=== PATIENT | male | born 1950 | race Caucasian/White ===

== ENCOUNTER 2017-02-28 01:01 | Emergency (ER) | payer MEDICARE, MEDICAID ==
[2017-02-28] MEDS: IPRATROPIUM 0.5MG/ALBUTEROL 2.5MG INH SOL UD 3ML (DUONEB)(J7620) NEB ×3 (01:35→01:36)
[2017-02-28 01:55] LABS: BASO # 0.1 10^3/uL (0.0-0.2); BASO % 0.5 % (0.0-1.0); EOS % 0.1 % (0.0-3.0); HEMATOCRIT 52.7 % (42.0-52.0); HEMOGLOBIN 18.1 g/dl (14.0-18.0); IMMATURE GRANULOCYTE # 0.2 10^3/uL (0-0); IMMATURE GRANULOCYTE % 0.7 % (0-0); LYMPH # 0.8 10^3/uL (1.5-4.5); LYMPH % 3.6 % (24.0-44.0); MEAN CORPUSCULAR HGB CONC 34.3 g/dl (32.0-36.5); MEAN CORPUSCULAR VOLUME 84.3 fl (80.0-96.0); MONO # 0.8 10^3/uL (0.0-0.8); MONO % 3.6 % (0.0-5.0); NEUTROPHILS # 19.2 10^3/uL (1.8-7.7); NEUTROPHILS % 91.5 % (36.0-66.0); PLATELET COUNT, AUTOMATED 263 10^3/uL (150-450); RED BLOOD COUNT 6.25 10^6/uL (4.30-6.10); RED CELL DISTRIBUTION WIDTH 12.5 % (11.5-14.5); WHITE BLOOD COUNT 20.9 10^3/uL (4.0-10.0)
[2017-02-28] MEDS: FUROSEMIDE 40 MG/4 ML VIAL (J1940) IV (01:55)
[2017-02-28] MEDS: ASPIRIN 81 MG CHEW TABLET PO (01:56)
[2017-02-28] MEDS: NITROGLYCERIN/D5W 100MCG/ML 250 ML IV (01:56)
[2017-02-28 01:57] LABS: ABG BASE EXCESS -3.6 (-2.0-2.0); ABG HCO3 21.2 MEQ/L (22.0-26.0); ABG O2 SATURATION 96.6 % (95.0-99.0); ABG PARTIAL PRESSURE CO2 38.3 mmHg (35.0-45.0); ABG PARTIAL PRESSURE O2 82.8 mmHg (75.0-100.0); ABG STANDARD HCO3 21.5 MEQ/L (22.0-26.0); ABG TOTAL CO2 22.4 MEQ/L (23.0-31.0); ABG pH (ARTERIAL) 7.362 UNITS (7.350-7.450)
[2017-02-28 02:23] LABS: ANION GAP 10 MEQ/L (8-16); BLOOD UREA NITROGEN 35 MG/DL (7-18); CALCIUM LEVEL 8.5 MG/DL (8.8-10.2); CARBON DIOXIDE LEVEL 24 MEQ/L (21-32); CHLORIDE LEVEL 101 MEQ/L (98-107); CPK CREATINE PHOSPHOKINASE 197 U/L (39-308); CREATININE FOR GFR 1.41 MG/DL (0.70-1.30); GLOMERULAR FILTRATION RATE 53.5 (>49); POTASSIUM SERUM 4.1 MEQ/L (3.5-5.1); SODIUM LEVEL 135 MEQ/L (136-145); TROPONIN I 1.11 NG/ML (< 0.10)
[2017-02-28 02:24] LABS: CK-MB VALUE MASS 20.7 NG/ML (0.0-3.6); NT-PRO BNP 3906 PG/ML (<125)
[2017-02-28 02:29] LABS: GLUCOSE, FASTING 448 MG/DL (80-110)
[2017-02-28] MEDS ORDERED: ISOVUE-370 76% 100ML VIAL (Q9967) As Ordered (02:36)
[2017-02-28 03:58] LABS: VENOUS BASE EXCESS -4.6 (-2.0-2.0); VENOUS HCO3 22.6 MEQ/L (23.0-27.0); VENOUS O2 SATURATION 82.3 % (60.0-80.0); VENOUS PARTIAL PRESSURE CO2 49.1 mmHg (38.0-50.0); VENOUS STANDARD HCO3 20.3 MEQ/L; VENOUS TOTAL CO2 24.1 MEQ/L (24.0-28.0)
[2017-02-28 04:54] LABS: CK-MB VALUE MASS 78.3 NG/ML (0.0-3.6); CPK CREATINE PHOSPHOKINASE 565 U/L (39-308); MB/CK RELATIVE INDEX 13.85 (< OR =4)
[2017-02-28] MEDS ORDERED: HEPARIN SOD (PORCINE) 5000 UNITS/ML VIAL IV ×2 (06:00)
[2017-02-28 06:24] LABS: HEMOGLOBIN 16.9 g/dl (14.0-18.0); MEAN CORPUSCULAR HGB CONC 34.5 g/dl (32.0-36.5); PLATELET COUNT, AUTOMATED 236 10^3/uL (150-450); RED BLOOD COUNT 5.83 10^6/uL (4.30-6.10); RED CELL DISTRIBUTION WIDTH 12.5 % (11.5-14.5); WHITE BLOOD COUNT 22.6 10^3/uL (4.0-10.0)
[2017-02-28] MEDS: HEPARIN SOD (PORCINE) 5000 UNITS/ML VIAL IV (06:26)
[2017-02-28] MEDS: HEPARIN DRIP 25,000 UNITS in APPROPRIATE DILUENT 1 EA IV (06:27)
[2017-02-28 06:35] LABS: PARTIAL THROMBOPLASTIN TIME 27.3 SECONDS (26.8-37.9)
== END 2017-02-28 08:08 | disposition short-term general hospital (02) ==
LOC: M ED 01:01
DX: J81.0 Acute pulmonary edema (principal); J96.91 Respiratory failure, unspecified with hypoxia; I21.4 Non-ST elevation (NSTEMI) myocardial infarction; Z79.899 Other long term (current) drug therapy; Z85.46 Personal history of malignant neoplasm of prostate
CPT/HCPCS: Q9967

== ENCOUNTER 2017-04-14 13:30 | Inpatient (IN) | payer MEDICARE, MEDICAID ==
[2017-04-14 16:32] LABS: HEMATOCRIT 37.4 % (42.0-52.0); HEMOGLOBIN 12.5 g/dl (14.0-18.0); MEAN CORPUSCULAR HEMOGLOBIN 28.2 pg (27.0-33.0); MEAN CORPUSCULAR HGB CONC 33.4 g/dl (32.0-36.5); MEAN CORPUSCULAR VOLUME 84.2 fl (80.0-96.0); PLATELET COUNT, AUTOMATED 314 10^3/uL (150-450); RED BLOOD COUNT 4.44 10^6/uL (4.30-6.10); WHITE BLOOD COUNT 10.2 10^3/uL (4.0-10.0)
[2017-04-14 16:50] LABS: ANION GAP 6 MEQ/L (8-16); BLOOD UREA NITROGEN 25 MG/DL (7-18); CALCIUM LEVEL 8.6 MG/DL (8.8-10.2); CARBON DIOXIDE LEVEL 28 MEQ/L (21-32); CHLORIDE LEVEL 104 MEQ/L (98-107); CREATININE FOR GFR 1.16 MG/DL (0.70-1.30); GLOMERULAR FILTRATION RATE > 60.0 (>49); GLUCOSE, FASTING 105 MG/DL (70-100); POTASSIUM SERUM 4.8 MEQ/L (3.5-5.1); PROTHROMBIN TIME 14.4 SECONDS (12.4-14.5); SODIUM LEVEL 138 MEQ/L (136-145)
[2017-04-14] MEDS ORDERED: NITROGLYCERIN 0.4 MG SUBL TABLET SL (18:15)
[2017-04-14 19:16] LABS: HEMATOCRIT 35.5 % (42.0-52.0); HEMOGLOBIN 11.9 g/dl (14.0-18.0)
[2017-04-14] MEDS ORDERED: ISOVUE-370 76% 100ML VIAL (Q9967) As Ordered (19:37)
[2017-04-14] MEDS: GASTROGRAFIN SOLUTION 30ML PO ×2 (19:45→20:15)
[2017-04-14] MEDS ORDERED: GLUCAGON FOR INJ 1 MG VIAL (J1610) SC (20:15)
[2017-04-14] MEDS ORDERED: DEXTROSE 50% 50 ML SYRINGE IV (20:15)
[2017-04-14] MEDS ORDERED: GLUCOSE 4 GM CHEW TABLET PO (20:15)
[2017-04-14] MEDS: HumaLOG INSULIN (NovoLOG) PER UNIT SC (21:00)
[2017-04-14 22:01] LABS: BEDSIDE GLUCOSE 131 MG/DL (80-115)
[2017-04-14] MEDS: ATORVASTATIN 20 MG TAB PO (22:45)
[2017-04-15 00:37] LABS: HEMATOCRIT 30.2 % (42.0-52.0); HEMOGLOBIN 10.3 g/dl (14.0-18.0)
[2017-04-15 07:34] LABS: HEMATOCRIT 34.8 % (42.0-52.0); HEMOGLOBIN 11.5 g/dl (14.0-18.0); MEAN CORPUSCULAR HEMOGLOBIN 28.1 pg (27.0-33.0); MEAN CORPUSCULAR VOLUME 85.1 fl (80.0-96.0); PLATELET COUNT, AUTOMATED 278 10^3/uL (150-450); RED BLOOD COUNT 4.09 10^6/uL (4.30-6.10); RED CELL DISTRIBUTION WIDTH 13.2 % (11.5-14.5); WHITE BLOOD COUNT 9.3 10^3/uL (4.0-10.0)
[2017-04-15 07:44] LABS: BEDSIDE GLUCOSE 125 MG/DL (80-115)
[2017-04-15 07:56] LABS: ANION GAP 7 MEQ/L (8-16); BLOOD UREA NITROGEN 24 MG/DL (7-18); CALCIUM LEVEL 8.5 MG/DL (8.8-10.2); CARBON DIOXIDE LEVEL 26 MEQ/L (21-32); CHLORIDE LEVEL 102 MEQ/L (98-107); CREATININE FOR GFR 1.18 MG/DL (0.70-1.30); GLOMERULAR FILTRATION RATE > 60.0 (>49); GLUCOSE, FASTING 139 MG/DL (70-100); MAGNESIUM LEVEL 2.2 MG/DL (1.8-2.4); POTASSIUM SERUM 4.5 MEQ/L (3.5-5.1); SODIUM LEVEL 135 MEQ/L (136-145)
[2017-04-15] MEDS: ASPIRIN 81 MG ENTERIC TAB PO (08:07)
[2017-04-15] MEDS: FINASTERIDE 5 MG TAB PO (08:07)
[2017-04-15] MEDS: HumaLOG INSULIN (NovoLOG) PER UNIT SC ×4 (08:07→20:18)
[2017-04-15] MEDS: TAMSULOSIN 0.4 MG CAP PO (08:07)
[2017-04-15] MEDS: CLOPIDOGREL 75 MG TAB PO (08:11)
[2017-04-15] MEDS ORDERED: LISINOPRIL 20 MG TAB PO (09:00)
[2017-04-15 11:56] LABS: HEMATOCRIT 31.9 % (42.0-52.0); HEMOGLOBIN 10.7 g/dl (14.0-18.0)
[2017-04-15 12:17] LABS: BEDSIDE GLUCOSE 215 MG/DL (80-115)
[2017-04-15 17:13] LABS: BEDSIDE GLUCOSE 98 MG/DL (80-115)
[2017-04-15 18:08] LABS: HEMATOCRIT 31.6 % (42.0-52.0); HEMOGLOBIN 10.6 g/dl (14.0-18.0)
[2017-04-15 20:25] LABS: BEDSIDE GLUCOSE 201 MG/DL (80-115)
[2017-04-15] MEDS: ATORVASTATIN 20 MG TAB PO (20:55)
[2017-04-16 00:19] LABS: HEMATOCRIT 29.8 % (42.0-52.0); HEMOGLOBIN 10.4 g/dl (14.0-18.0)
[2017-04-16 07:12] LABS: HEMATOCRIT 31.3 % (42.0-52.0); HEMOGLOBIN 10.6 g/dl (14.0-18.0); MEAN CORPUSCULAR HEMOGLOBIN 28.5 pg (27.0-33.0); MEAN CORPUSCULAR HGB CONC 33.9 g/dl (32.0-36.5); MEAN CORPUSCULAR VOLUME 84.1 fl (80.0-96.0); PLATELET COUNT, AUTOMATED 235 10^3/uL (150-450); RED BLOOD COUNT 3.72 10^6/uL (4.30-6.10); RED CELL DISTRIBUTION WIDTH 13.2 % (11.5-14.5); WHITE BLOOD COUNT 7.3 10^3/uL (4.0-10.0)
[2017-04-16 07:28] LABS: ANION GAP 4 MEQ/L (8-16); BLOOD UREA NITROGEN 20 MG/DL (7-18); CALCIUM LEVEL 8.1 MG/DL (8.8-10.2); CARBON DIOXIDE LEVEL 27 MEQ/L (21-32); CHLORIDE LEVEL 105 MEQ/L (98-107); GLOMERULAR FILTRATION RATE > 60.0 (>49); GLUCOSE, FASTING 134 MG/DL (70-100); MAGNESIUM LEVEL 2.3 MG/DL (1.8-2.4); POTASSIUM SERUM 4.5 MEQ/L (3.5-5.1); SODIUM LEVEL 136 MEQ/L (136-145)
[2017-04-16] MEDS: FINASTERIDE 5 MG TAB PO (08:04)
[2017-04-16] MEDS: TAMSULOSIN 0.4 MG CAP PO (08:04)
[2017-04-16] MEDS: CLOPIDOGREL 75 MG TAB PO (08:04)
[2017-04-16] MEDS: ASPIRIN 81 MG ENTERIC TAB PO (08:04)
[2017-04-16] MEDS: HumaLOG INSULIN (NovoLOG) PER UNIT SC ×2 (08:05→12:37)
[2017-04-16 12:21] LABS: BEDSIDE GLUCOSE 208 MG/DL (80-115)
== END 2017-04-16 14:25 | disposition home or self-care (01) | DRG 699 ==
LOC: M ED 13:30 → M ED INP 17:21 → M MS4PR 21:20
DX: T83.83XA Hemorrhage due to genitourinary prosthetic devices, implants and grafts, initial encounter (principal); I50.22 Chronic systolic (congestive) heart failure; I11.0 Hypertensive heart disease with heart failure; N40.1 Benign prostatic hyperplasia with lower urinary tract symptoms; E11.9 Type 2 diabetes mellitus without complications; Z79.82 Long term (current) use of aspirin; Z79.84 Long term (current) use of oral hypoglycemic drugs; Z95.9 Presence of cardiac and vascular implant and graft, unspecified; Z96.0 Presence of urogenital implants; I25.2 Old myocardial infarction; Z79.899 Other long term (current) drug therapy; Y82.9 Unspecified medical devices associated with adverse incidents

== ENCOUNTER 2017-04-25 19:47 | Emergency (ER) | payer MEDICARE, MEDICAID ==
[2017-04-25 21:05] LABS: KETONE, URINE AUTO RFX NEGATIVE (NEGATIVE); LEUKOCYTE ESTERASE UR AUTO RFX NEGATIVE (NEGATIVE); NITRITE, URINE AUTO RFX NEGATIVE (NEGATIVE); RBC, URINE AUTO RFX 55 /HPF (0-3); SPECIFIC GRAVITY UR AUTO RFX 1.005 (1.002-1.035); SQUAM EPITHELIAL CELL UR AURFX 0 /HPF (0-6); WBC, URINE AUTO RFX 4 /HPF (0-3)
== END 2017-04-25 21:00 | disposition home or self-care (01) ==
LOC: M ED 19:47
DX: R33.9 Retention of urine, unspecified (principal); N40.1 Benign prostatic hyperplasia with lower urinary tract symptoms; I25.10 Atherosclerotic heart disease of native coronary artery without angina pectoris; Z79.899 Other long term (current) drug therapy; Z79.82 Long term (current) use of aspirin
CPT/HCPCS: 81001

== ENCOUNTER 2017-06-10 14:33 | Emergency (ER) | payer MEDICARE, MEDICAID ==
[2017-06-10] MEDS: ACETAMINOPHEN TAB 650MG DOSE (2X325MG) PO (15:37)
== END 2017-06-10 16:35 | disposition home or self-care (01) ==
LOC: M ED 14:33
DX: T83.098A Other mechanical complication of other urinary catheter, initial encounter (principal); E11.9 Type 2 diabetes mellitus without complications; I50.9 Heart failure, unspecified; I25.2 Old myocardial infarction; I11.0 Hypertensive heart disease with heart failure; E78.00 Pure hypercholesterolemia, unspecified; N40.0 Benign prostatic hyperplasia without lower urinary tract symptoms; Z79.01 Long term (current) use of anticoagulants
CPT/HCPCS: 99283

== ENCOUNTER 2017-06-13 10:22 | Emergency (ER) | payer MEDICARE, MEDICAID | END 2017-06-13 11:34 | disposition home or self-care (01) | LOC: M ED 10:22 | DX: Z46.6 Encounter for fitting and adjustment of urinary device (principal); I11.0 Hypertensive heart disease with heart failure; I50.9 Heart failure, unspecified; I25.2 Old myocardial infarction; E11.9 Type 2 diabetes mellitus without complications; N40.1 Benign prostatic hyperplasia with lower urinary tract symptoms; Z86.711 Personal history of pulmonary embolism; Z95.5 Presence of coronary angioplasty implant and graft; Z79.899 Other long term (current) drug therapy; Z79.02 Long term (current) use of antithrombotics/antiplatelets; Z79.82 Long term (current) use of aspirin; Z79.2 Long term (current) use of antibiotics | CPT/HCPCS: 99284 ==

== ENCOUNTER → 2017-07-14 | Outpatient (REF) | payer MEDICARE, MEDICAID | LOC: M SFHCPLAZ 15:16 | DX: E11.59 Type 2 diabetes mellitus with other circulatory complications (principal) ==

== ENCOUNTER → 2017-07-14 | Outpatient (REF) | payer MEDICARE, MEDICAID ==
[2017-07-14 19:04] LABS: APPEARANCE, URINE CLOUDY (CLEAR); BACTERIA, URINE AUTO 2+ (NEGATIVE); BILIRUBIN, URINE AUTO NEGATIVE (NEGATIVE); BLOOD, URINE BLOOD 2+ (NEGATIVE); COLOR, URINE YELLOW (YELLOW); GLUCOSE, URINE (UA) AUTO NEGATIVE (NEGATIVE); KETONE, URINE AUTO NEGATIVE (NEGATIVE); LEUKOCYTE ESTERASE, URINE AUTO 3+ (NEGATIVE); MUCUS, URINE SMALL (NEGATIVE); NITRITE, URINE AUTO NEGATIVE (NEGATIVE); PROTEIN, URINE AUTO 1+ mg/dL (NEGATIVE); RBC, URINE AUTO 26 /HPF (0-3); SPECIFIC GRAVITY URINE AUTO 1.017 (1.002-1.035); SQUAMOUS EPITHELIAL CELL UR AU 0 /HPF (0-6); UROBILINOGEN, URINE AUTO 0.2 mg/dL (0.0-2.0); WBC, URINE AUTO 124 /HPF (0-3)
== END ==
LOC: M SMT 18:12
DX: R33.9 Retention of urine, unspecified (principal)
CPT/HCPCS: 81001

== ENCOUNTER 2017-09-15 08:07 | Emergency (ER) | payer MEDICARE, MEDICAID | END 2017-09-15 09:50 | disposition home or self-care (01) | LOC: M ED 08:07 | DX: T83.098A Other mechanical complication of other urinary catheter, initial encounter (principal); Y92.9 Unspecified place or not applicable; Y93.9 Activity, unspecified; I51.9 Heart disease, unspecified; E11.9 Type 2 diabetes mellitus without complications; I10 Essential (primary) hypertension; E78.5 Hyperlipidemia, unspecified; Z95.5 Presence of coronary angioplasty implant and graft; Z79.82 Long term (current) use of aspirin; Z79.84 Long term (current) use of oral hypoglycemic drugs; Z79.899 Other long term (current) drug therapy | CPT/HCPCS: 99284 ==

== ENCOUNTER 2017-10-12 08:58 | Emergency (ER) | payer MEDICARE, MEDICAID | END 2017-10-12 11:56 | disposition home or self-care (01) | LOC: M ED 08:58 | DX: Z71.1 Person with feared health complaint in whom no diagnosis is made (principal); I11.9 Hypertensive heart disease without heart failure; E78.5 Hyperlipidemia, unspecified; E11.9 Type 2 diabetes mellitus without complications; I25.10 Atherosclerotic heart disease of native coronary artery without angina pectoris; N40.0 Benign prostatic hyperplasia without lower urinary tract symptoms; Z95.5 Presence of coronary angioplasty implant and graft; Z79.899 Other long term (current) drug therapy; Z79.82 Long term (current) use of aspirin; Z79.84 Long term (current) use of oral hypoglycemic drugs; Z79.02 Long term (current) use of antithrombotics/antiplatelets; Z96.0 Presence of urogenital implants | CPT/HCPCS: 99284 ==

== ENCOUNTER 2017-11-01 13:16 | Emergency (ER) | payer MEDICARE, MEDICAID | END 2017-11-01 17:00 | disposition home or self-care (01) | LOC: M ED 13:16 | DX: T83.9XXA Unspecified complication of genitourinary prosthetic device, implant and graft, initial encounter (principal); I25.10 Atherosclerotic heart disease of native coronary artery without angina pectoris; E11.9 Type 2 diabetes mellitus without complications; I10 Essential (primary) hypertension | CPT/HCPCS: 99283 ==

== ENCOUNTER 2018-02-09 17:26 | Emergency (ER) | payer MEDICARE, MEDICAID ==
[~2018-02-09] VITALS: Ht 177.8 cm; Wt 81.8 kg
[~2018-02-09 17:26] MED LIST: AMLO10TA5 PO; ASPI81TA85 PO; ATOR40TA75 PO; CEFD300CAP PO; CIPR500T19 PO; CLOP75TA2 PO; FINA5TAB2 PO; FLOM0.4C39 PO; LISI-538 PO; METF10004; METF500T13 PO; NITR4TASL SL; PROS5TAB PO; SPIR-10 PO; TAMSULOSIN
--- NOTE | 2018-02-09 18:22 | REP ---
KUB: Single view. History: Constipation. Comparison is made with abdominal CT imaging from April 14, 2017. Findings: A Perdomo catheter is noted in place. There is moderate stool in the ascending, hepatic flexure, distal transverse and rectal segments of the colon consistent with some degree of constipation. No small bowel dilation is seen. Psoas margins are symmetric. Bowel gas pattern is similar to the prior CT study. Impression: Moderate proximal and distal colonic stool. Perdomo catheter noted. Otherwise negative. Electronically Signed by Luis Dhaliwal MD 02/09/2018 06:14 P
[2018-02-09] MEDS ORDERED: FLEET ENEMA PR ONE (18:45)
[2018-02-09] MEDS ORDERED: MAGNESIUM CITRATE 300 ML BTL PO ONE (20:30)
[2018-02-09] MEDS ORDERED: MIRA3350 PO (21:24)
[2018-02-09 21:28] VITALS: BP 133/63
== END 2018-02-09 21:47 | disposition home or self-care (01) ==
LOC: M ED 17:26
DX: K59.00 Constipation, unspecified (principal); I50.9 Heart failure, unspecified; I25.2 Old myocardial infarction; E11.9 Type 2 diabetes mellitus without complications; I11.0 Hypertensive heart disease with heart failure; E78.5 Hyperlipidemia, unspecified; N40.0 Benign prostatic hyperplasia without lower urinary tract symptoms; F32.9 Major depressive disorder, single episode, unspecified; F41.9 Anxiety disorder, unspecified; Z95.5 Presence of coronary angioplasty implant and graft; Z79.899 Other long term (current) drug therapy; Z79.02 Long term (current) use of antithrombotics/antiplatelets; Z79.82 Long term (current) use of aspirin; Z79.84 Long term (current) use of oral hypoglycemic drugs

== ENCOUNTER 2018-02-11 15:40 | Inpatient (IN) | payer MEDICARE, MEDICAID ==
[~2018-02-11] VITALS: Ht 177.8 cm; Wt 83.7 kg
[~2018-02-11 15:40] MED LIST changes: +AMLO10TA4 PO; -AMLO10TA5 PO; +MIRA3350 PO
--- NOTE | 2018-02-11 16:36 | REP ---
Clinical: Altered mental status . Comparison: 02/28/2017 . Findings: The mediastinum and cardiac silhouette are stable and within normal limits for portable technique. The lung king are clear without acute consolidation, effusion, or pneumothorax. Skeletal structures are intact. Impression: No acute cardiopulmonary process appreciated. Electronically Signed by Azar Burkett MD 02/11/2018 04:27 P
[2018-02-11] MEDS: NS 1,000 ML IV SCH ×2 (17:06→21:55)
[2018-02-11 17:18] LABS: BASO # 0.1 10^3/uL (0.0-0.2); BASO % 0.6 % (0.0-1.0); EOS # 0.2 10^3/uL (0.0-0.50); EOS % 1.7 % (0.0-3.0); HEMATOCRIT 39.8 % (42.0-52.0); HEMOGLOBIN 13.1 g/dl (13.5-17.5); LYMPH # 1.2 10^3/uL (1.5-4.5); LYMPH % 13.9 % (24.0-44.0); MEAN CORPUSCULAR HEMOGLOBIN 29.1 pg (27.0-33.0); MEAN CORPUSCULAR HGB CONC 32.9 g/dl (32.0-36.5); MEAN CORPUSCULAR VOLUME 88.4 fl (80.0-96.0); MONO # 0.7 10^3/uL (0.0-0.8); MONO % 7.5 % (0.0-5.0); NEUTROPHILS # 6.6 10^3/uL (1.8-7.7); NEUTROPHILS % 76.1 % (36.0-66.0); PLATELET COUNT, AUTOMATED 197 10^3/uL (150-450); WHITE BLOOD COUNT 8.7 10^3/uL (4.0-10.0)
[2018-02-11 17:51] LABS: ALBUMIN 4.1 GM/DL (3.2-5.2); ALT/SGPT 33 U/L (12-78); BILIRUBIN,DIRECT 0.2 MG/DL (0.0-0.2); BILIRUBIN,TOTAL 0.6 MG/DL (0.2-1.0); BLOOD UREA NITROGEN 33 MG/DL (7-18); CALCIUM LEVEL 8.7 MG/DL (8.8-10.2); CARBON DIOXIDE LEVEL 25 MEQ/L (21-32); CHLORIDE LEVEL 107 MEQ/L (98-107); CPK CREATINE PHOSPHOKINASE 167 U/L (39-308); CREATININE FOR GFR 1.38 MG/DL (0.70-1.30); GLOMERULAR FILTRATION RATE 54.7 (>49); GLUCOSE, FASTING 91 MG/DL (70-100); MB/CK RELATIVE INDEX 7.25 (< OR =4); POTASSIUM SERUM 5.7 MEQ/L (3.5-5.1); SODIUM LEVEL 139 MEQ/L (136-145); TOTAL PROTEIN 7.3 GM/DL (6.4-8.2); TROPONIN I < 0.02 NG/ML (< 0.10)
--- NOTE | 2018-02-11 18:32 | ECGEPIP ---
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
[2018-02-11] MEDS ORDERED: METF-881 PO (18:42)
[2018-02-11] MEDS ORDERED: NITROGLYCERIN 0.4 MG SUBL TABLET SL PRN (19:45)
[2018-02-11 21:40] VITALS: BP 180/70
[2018-02-11] MEDS: ATORVASTATIN 20 MG TAB PO SCH (21:57)
[2018-02-11] MEDS ORDERED: GLUCOSE 4 GM CHEW TABLET PO PRN (22:15)
[2018-02-11] MEDS ORDERED: GLUCAGON FOR INJ 1 MG VIAL (J1610) SC PRN (22:15)
[2018-02-11] MEDS ORDERED: DEXTROSE 50% 50 ML SYRINGE IV PRN (22:15)
[2018-02-11] MEDS ORDERED: SOD POLYSTYRENE SULFONATE SUSP 15 GM/60 ML UD PO ONE (22:15)
[2018-02-11] MEDS ORDERED: amLODIPine 5 MG TAB PO ONE (22:15)
[2018-02-11] MEDS: metFORMIN (GLUCOPHAGE) 1000 MG TABLET PO SCH (23:08)
[2018-02-12] VITALS: BP 158/60
[2018-02-12] MEDS ORDERED: SLF 3 ML SYR IV PRN (02:45)
[2018-02-12 03:12] LABS: BASO # 0.1 10^3/uL (0.0-0.2); BASO % 0.6 % (0.0-1.0); EOS # 0.2 10^3/uL (0.0-0.50); EOS % 2.2 % (0.0-3.0); HEMATOCRIT 35.7 % (42.0-52.0); HEMOGLOBIN 11.8 g/dl (13.5-17.5); LYMPH # 1.2 10^3/uL (1.5-4.5); LYMPH % 15.5 % (24.0-44.0); MEAN CORPUSCULAR HEMOGLOBIN 29.4 pg (27.0-33.0); MEAN CORPUSCULAR HGB CONC 33.1 g/dl (32.0-36.5); MONO # 0.6 10^3/uL (0.0-0.8); MONO % 8.2 % (0.0-5.0); NEUTROPHILS # 5.7 10^3/uL (1.8-7.7); NEUTROPHILS % 73.2 % (36.0-66.0); PLATELET COUNT, AUTOMATED 182 10^3/uL (150-450); RED BLOOD COUNT 4.01 10^6/uL (4.30-6.10); WHITE BLOOD COUNT 7.8 10^3/uL (4.0-10.0)
[2018-02-12 03:33] LABS: BLOOD UREA NITROGEN 29 MG/DL (7-18); CALCIUM LEVEL 8.1 MG/DL (8.8-10.2); CARBON DIOXIDE LEVEL 22 MEQ/L (21-32); CHLORIDE LEVEL 112 MEQ/L (98-107); CREATININE FOR GFR 1.14 MG/DL (0.70-1.30); GLOMERULAR FILTRATION RATE > 60.0 (>49); GLUCOSE, FASTING 87 MG/DL (70-100); POTASSIUM SERUM 4.7 MEQ/L (3.5-5.1); SODIUM LEVEL 141 MEQ/L (136-145); TROPONIN I < 0.02 NG/ML (< 0.10)
[2018-02-12 04:00] VITALS: BP 125/66
[2018-02-12] MEDS: SLF 3 ML SYR IV SCH ×3 (05:03→20:46)
[2018-02-12 08:00] VITALS: BP 141/65
[2018-02-12] MEDS ORDERED: CLOPIDOGREL 75 MG TAB PO SCH (09:00)
[2018-02-12] MEDS ORDERED: ASPIRIN 81 MG ENTERIC TAB PO SCH (09:00)
[2018-02-12] MEDS: metFORMIN (GLUCOPHAGE) 1000 MG TABLET PO SCH ×2 (09:29→19:04)
[2018-02-12] MEDS: LISINOPRIL 20 MG TAB PO SCH (09:30)
[2018-02-12] MEDS: SPIRONOLACTONE 25 MG TAB PO SCH (09:30)
[2018-02-12] MEDS: TAMSULOSIN 0.4 MG CAP PO SCH (09:30)
--- NOTE | 2018-02-12 10:00 | HPE ---
DATE OF ADMISSION: 02/11/2018 This is a 67-year-old male with a past medical history of systolic heart failure, history of coronary artery disease, non ST elevation myocardial infarction with two cardiac stents placed in February 2017, diabetes, hypertension, benign prostatic hypertrophy (BPH) requiring chronic Perdomo, who presents to the emergency room after having his Perdomo bag displaced at home. He had it replaced in the emergency room, but incidentally, the patient was found to be bradycardic and a 12-lead electrocardiogram (EKG) showed that he was in Mobitz type II. He is completely asymptomatic and has no complaints of dizziness, chest pain or shortness of breath. He has never had this in the past. He will be admitted for further management. PAST MEDICAL HISTORY: 1. Chronic systolic heart failure. 2. Diabetes. 3. Hypertension. 4. Benign prostatic hypertrophy (BPH) requiring chronic Perdomo placement. 5. Coronary artery disease, status post non ST elevation myocardial infarction with two cardiac stent placements in February 2017. ALLERGIES: He has no known drug allergies. FAMILY HISTORY: Noncontributory. SOCIAL HISTORY: The patient denies tobacco, alcohol or illicit drugs. MEDICATIONS: He takes at home: - aspirin 81 mg by mouth daily - atorvastatin 40 mg by mouth at bedtime - Plavix 75 mg by mouth daily - Lisinopril 200 mg by mouth daily - metformin 1000 mg by mouth twice a day - nitroglycerin 0.4 mg sublingual times three every 5 minutes as needed - MiraLAX as needed - aldactone 25 mg by mouth daily - tamsulosin 0.4 mg by mouth daily REVIEW OF SYSTEMS: Negative for all ten major systems except what is mentioned in the history of present illness. VITAL SIGNS: Blood pressure 166/74, heart rate is 50 and regular, respiratory rate is 14, temperature 96, oxygen saturation 100% on room air. Head is atraumatic, normocephalic. Neck is supple with no jugular venous distention (JVD). Lungs are clear to auscultation. S1, S2 audible. No murmurs appreciated. Abdomen is soft. Positive bowel sounds. No pedal edema. Skin intact. Neurologic examination, the patient is awake, alert and oriented times three. LABORATORIES: WBC 8.7, hemoglobin 13.1, hematocrit 39.8, platelets are 197,000. Sodium 139, potassium 5.7, chloride is 107, CO2 is 25, anion gap is 7, BUN 33, creatinine 1.38, glucose is 91, troponin is less than 0.02, TSH is 1.83. IMPRESSION: 1. Bradycardia. 2. Arrhythmia. PLAN: The patient is to be admitted to the progressive care unit (PCU). We will get a second troponin to rule out acute coronary syndrome. I will continue all of his preadmission medications. His potassium is borderline elevated and he is on potassium sparing diuretic. We will repeat the BMP in the morning. If this remains this high or higher, we will stop his aldactone. We will have Dr. Massey on consult and we will be awaiting his recommendations.
--- NOTE | 2018-02-12 11:31 | IPNPDOC ---
Date Seen The patient was seen on 02/12/18. Progress Note SUBJECTIVE: Patient tells me that he came to the emergency room because his Perdomo catheter was not functioning correctly but nowadays he tells me that he was having some pain associated with it but now he is not. He denies lightheadedness dizziness episodes of passing out once of breath fatigue or falls OBJECTIVE PHYSICAL EXAMINATION: VITAL SIGNS: Please see below. GENERAL: He is a somewhat disheveled elderly man sitting up in bed awake alert speaking in complete sentences he stutters but does not appear to be in any acute distress HEENT: Cranial nerves II through XII appear to be grossly intact CARDIOVASCULAR: S1-S2 bradycardic and somewhat irregular. RESPIRATORY: Clear to auscultation bilaterally. ABDOMINAL: Bowel sounds are present abdomen soft and nontender EXTREMITIES: No clubbing cyanosis or edema he has a Perdomo catheter in place draining yellow urine LABORATORY DATA, IMAGING STUDIES, MICROBIOLOGY: Please see below. Echocardiogram: Ordered and pending. DVT prophylaxis ordered?: We'll start teds and sequentials and urge ambulation ASSESSMENT AND PLAN: This is a 67-year-old man with heart block. PROBLEMS: 1. Second-degree heart block: No appears to be Wenckebach/Mobitz type II he does have some nonconducted P waves P waves are quite regular March out quite regularly by my Measurements this morning. Surprisingly is completely asymptomatic with this cardiology consultation placed and echocardiogram has been ordered he is not on any AV daniel blocking agents cardiology consult greatly appreciated. A TSH is within normal limits is no history of being in the [place] whatsoever had any tick bites which he is alert with no rashes. 2. Perdomo catheter and urinary retention: [His Perdomo was apparently leaking but this was adjusted in the emergency room and appears of resolved is draining clear yellow urine at this time it appears to follow quite closely and regularly in urology clinic for his catheter, BPH and hypotonic bladder. Patient is c ontinued on tamsulosin 3. Chronic systolic heart failure: No echo on record 1 is been ordered, he is on an AYDEE inhibitor and spironolactone curiously no diabetic he appears euvolemic AT this time cardiology help appreciated. 4. Diabetes: Patient is continued on metformin and lisinopril: 5. Hypertension: The patient is on lisinopril spironolactone 6. Coronary artery disease with 2 stents in February of this year: The patient is on aspirin and statin Plavix curiously no beta porsha we will defer to his outpatient providers and cardiology DISPOSITION: Pending echo and cardiology eval for possible permanent pacemaker placement. VS, I&O, 24H, [facility] Vital Signs/I&O Vital Signs Date Time Temp Pulse Resp B/P (MAP) Pulse Ox O2 Delivery O2 Flow Rate FiO2 02/12/18 09:30 141/65 02/12/18 08:00 97.5 74 20 98 Room Air I&O- Last 24 Hours up to 6 AM 02/12/18 06:00 Intake Total 440 ml Output Total 450 ml Balance -10 ml Laboratory Data 24H LABS Laboratory Tests 2 02/11/18 17:10: Immature Granulocyte % (Auto) 0.2, White Blood Count 8.7, Red Blood Count 4.50, Hemoglobin 13.1L, Hematocrit 39.8L, Mean Corpuscular Volume 88.4, Mean Corpuscular Hemoglobin 29.1, Mean Corpuscular Hemoglobin Concent 32.9, Red Cell Distribution Width 13.3, Platelet Count 197, Neutrophils (%) (Auto) 76.1H, Lymphocytes (%) (Auto) 13.9L, Monocytes (%) (Auto) 7.5H, Eosinophils (%) (Auto) 1.7, Basophils (%) (Auto) 0.6, Neutrophils # (Auto) 6.6, Lymphocytes # (Auto) 1.2L, Monocytes # (Auto) 0.7, Eosinophils # (Auto) 0.2, Basophils # (Auto) 0.1, Nucleated Red Blood Cells % (auto) 0.0, Anion Gap 7L, Glomerular Filtration Rate 54.7, Calcium Level 8.7L, Aspartate Amino Transf (AST/SGOT) 24, Alanine Aminotransferase (ALT/SGPT) 33, Alkaline Phosphatase 99, Total Bilirubin 0.6, Direct Bilirubin 0.2, Total Creatine Kinase 167, Creatine Kinase MB 12.0H, Creatine Kinase MB Relative Index 7.25H, Troponin I < 0.02, Total Protein 7.3, Albumin 4.1, Albumin/Globulin Ratio 1.28, Thyroid Stimulating Hormone (TSH) 1.830 02/11/18 17:16: Bedside Glucose (Misc Panel) 77L 02/11/18 18:07: Urine Color YELLOW, Urine Appearance HAZY, Urine pH 5.0, Urine Specific [place] 1.020, Urine Protein NEGATIVE, Urine Glucose (UA) NEGATIVE, Urine Ketones NEGATIVE, Urine Blood NEGATIVE, Urine Nitrite NEGATIVE, Urine Bilirubin NEGATIVE, Urine Urobilinogen 0.2, Urine Leukocyte Esterase 2+H, Urine WBC (Auto) 4H, Urine RBC (Auto) 6H, Urine Hyaline Casts (Auto) 4, Urine Bacteria (Auto) NEGATIVE, Urine Squamous Epithelial Cells 0, Urine Transitional Epithelial Cells <1, Urine Mucus (Auto) SMALL, Urine Sperm (Auto) 02/11/18 23:02: Bedside Glucose (Misc Panel) 140H 02/12/18 03:02: Immature Granulocyte % (Auto) 0.3, White Blood Count 7.8, Red Blood Count 4.01L, Hemoglobin 11.8L, Hematocrit 35.7L, Mean Corpuscular Volume 89.0, Mean Corpuscular Hemoglobin 29.4, Mean Corpuscular Hemoglobin Concent 33.1, Red Cell Distribution Width 13.2, Platelet Count 182, Neutrophils (%) (Auto) 73.2H, Lymphocytes (%) (Auto) 15.5L, Monocytes (%) (Auto) 8.2H, Eosinophils (%) (Auto) 2.2, Basophils (%) (Auto) 0.6, Neutrophils # (Auto) 5.7, Lymphocytes # (Auto) 1.2L, Monocytes # (Auto) 0.6, Eosinophils # (Auto) 0.2, Basophils # (Auto) 0.1, Nucleated Red Blood Cells % (auto) 0.0, Anion Gap 7L, Glomerular Filtration Rate > 60.0, Blood Urea Nitrogen 29H, Creatinine 1.14, Sodium Level 141, Potassium Level 4.7, Chloride Level 112H, Carbon Dioxide Level 22, Calcium Level 8.1L, Troponin I < 0.02 CBC/BMP Laboratory Tests 02/11/18 17:10 Red Blood Count 4.50, Mean Corpuscular Volume 88.4, Mean Corpuscular Hemoglobin 29.1, Mean Corpuscular Hemoglobin Concent 32.9, Red Cell Distribution Width 13.3, Neutrophils (%) (Auto) 76.1 H, Lymphocytes (%) (Auto) 13.9 L, Monocytes (%) (Auto) 7.5 H, Eosinophils (%) (Auto) 1.7, Basophils (%) (Auto) 0.6, Neutrophils # (Auto) 6.6, Lymphocytes # (Auto) 1.2 L, Monocytes # (Auto) 0.7, Eosinophils # (Auto) 0.2, Basophils # (Auto) 0.1 02/12/18 03:02 Red Blood Count 4.01 L, Mean Corpuscular Volume 89.0, Mean Corpuscular Hemoglobin 29.4, Mean Corpuscular Hemoglobin Concent 33.1, Red Cell Distribution Width 13.2, Neutrophils (%) (Auto) 73.2 H, Lymphocytes (%) (Auto) 15.5 L, Monocytes (%) (Auto) 8.2 H, Eosinophils (%) (Auto) 2.2, Basophils (%) (Auto) 0.6, Neutrophils # (Auto) 5.7, Lymphocytes # (Auto) 1.2 L, Monocytes # (Auto) 0.6, Eosinophils # (Auto) 0.2, Basophils # (Auto) 0.1, Calcium Level 8.1 L Microbiology Microbiology 02/11/18 Blood Culture, Received Pending 02/11/18 Blood Culture, Received Pending 02/11/18 Urine Culture, Received Pending THOM PEOPLES MD Feb 12, 2018 11:31
[2018-02-12 12:00] VITALS: BP 148/50
[2018-02-12 16:00] VITALS: BP 155/67
--- NOTE | 2018-02-12 17:15 | CR ---
CARDIOLOGY CONSULTATION DATE OF CONSULTATION: 02/12/2018 REFERRING PHYSICIAN: Dr. Bell. COPY TO: Dr. Pantera Lolyd and , invasive cardiology, [facility]. INDICATION: Intermittent high-grade AV block. HISTORY: This 67-year-old single, handicapped male living with his younger brother in [facility], is known to my cardiology practice from an office consultation March 29, 2017. He has a history of ischemic heart disease, presenting with flash pulmonary edema and acute non-ST segment elevation myocardial infarction February 28, 2017. Underwent successful stenting and essentially has been free of cardiovascular complaint since that time. Was seen by my associate Dr. Valencia in the office and denies any cardiovascular complaint, though he is very sedentary, walking only short distances and with his mental handicap does no more than washing dishes. At that time, he was felt to be compensated with heart rate 44 beats per minute and irregular, blood pressure 131/44, respiratory rate 16, Body Mass Index (BMI) 29. Neck veins were 3 cm above the sternal angle. There were no inspiratory rales or dependent edema. His electrocardiogram (EKG) showed sinus bradycardia with second-degree AV block, Mobitz type I and average heart rate 42 beats per minute. There is poor precordial R-wave progression with moderate QRS widening and nonspecific ST / T-wave abnormalities. His metoprolol succinate was discontinued because of his slow heart rate, but he was continued on combination antiplatelet therapy, AYDEE inhibitor, atorvastatin and amlodipine. Cardiac rehabilitation was encouraged and a Holter monitor was requested. April 08, 2017, his 24-hour Holter monitor showed underlying sinus rhythm with first-degree AV block and intermittent second-degree AV block, Mobitz type I. Heart rate ranged between 28 while sleeping at 02:33 a.m. and 124 bpm at 07:33 a.m., averaging 62 bpm. There was no diurnal bradycardia or pause exceeding 2.5 seconds. He had only rare isolated premature ventricular contractions (PVCs). No symptom was reported. Unfortunately, the patient was somewhat lost to followup, having rescheduled on one occasion and no showing on two other occasions related to hospital admissions or presentations. However, he claims to have been able to tolerate his customary low level activity without complaint. In particular, he has not been aware of his heart action. May have fleeting positional lightheadedness but has not fallen or lost consciousness. No chest pain, shortness of breath, lateralizing neurological deficit or claudication. KNOWN PAST CARDIAC DISEASE / EVENTS/TESTS: February 28, 2017 flash pulmonary edema attributed to non-ST segment elevation myocardial infarction. March 01, 2017 cardiac catheterization, [facility], apical LV hypokinesis, left ventricular ejection fraction 45 - 50%, proximal 99% hazy stenosis and separate 50% mid LAD stenosis. Small caliber V1 with proximal 45% stenosis followed by a 90% midvessel stenosis. 95% mid circumflex stenosis. Small nondominant right coronary with no obstruction. He was randomized in the hybrid trial to multivessel PTCA rather than bypass surgery. February 28, 2017 echocardiogram, [facility] "flash pulmonary edema," apical / septal hypokinesis, LV dilatation at 5.7 cm, left ventricular ejection fraction 50%, mildly dilated left atrium at 4.2 cm. Normal LV wall thickness. No comment on the right heart chamber sizes or estimated pulmonary arterial pressure but his inferior vena cava was dilated in keeping with an elevated central venous pressure / right heart failure at that time. There was no significant valvular disease or pericardial effusion. Normal aortic root size. March 03, 2017, [facility] underwent successful drug-eluting stenting of his proximal LAD and proximal and mid circumflex arteries. April 08, 2017 Holter monitor report as mentioned above. CORONARY RISK FACTORS: Age, gender, hypertension, type 2 diabetes mellitus, hypercholesterolemia. No history of smoking and no family history of premature coronary disease. PAST MEDICAL HISTORY: Mental retardation / deficiency with disability. He is independent in bathing, dressing, feeding and ambulating, dependent with toileting. Does not consume alcohol. REVIEW OF SYSTEMS: Does admit to some ease of fatigue but no fever, chills or weight loss. No visual disturbance, hearing problems. Denies respiratory complaints. Has a good appetite without heartburn, abdominal pain or gastrointestinal bleeding. Has indwelling Perdomo catheter because of the urinary retention February 2017 followed by urology. Denies any arthritic complaints, rashes, lumps or bumps. All other systems review is negative. MEDICATIONS: At the time of his admission, his medications are listed as: - lisinopril 20 mg daily - atorvastatin 40 mg daily - spironolactone 25 mg daily - aspirin 81 mg daily - Plavix 75 mg daily - MiraLax 17 grams daily as needed for constipation - nitroglycerin 0.4 mg sublingually every 5 minutes as needed for chest pain - metformin 500 mg tablets two tablets twice a day - Flomax 0.4 mg by mouth daily ALLERGIES: None known. PHYSICAL EXAMINATION: CONSTITUTIONAL: Slightly overweight and somewhat slow, late middle-aged male laying comfortably with the head of bed elevated only 20 degrees. Heart rate 42 beats per minute and irregular, blood pressure 130/60 supine, unchanged upon sitting with legs dependent, respiratory rate 16 per minute with oxygen saturation 99% on room air. Afebrile. Height 70 inches, weight 190 pounds, body Mass Index (BMI) 27.2 Eyes: Normal conjunctivae and lids. No xanthelasma. ENT/MOUTH: Poor dentition with multiple missing teeth. Normal oral moisture with no central cyanosis or pallor. NECK: Trachea midline. Thyroid not enlarged. Somewhat irregular. Jugular venous pulsation approximately 3 cm above the sternal angle. RESPIRATORY: Normal-appearing chest configuration and chest expansion with good air entry over both lung king and no abnormal pulmonary adventitious sounds. CARDIOVASCULAR: Apical impulse was not palpable. Heart sounds were somewhat distant and irregular. Unable to detect any gallop or murmur. Normal carotid upstrokes but variable volume related to his arrhythmia. No bruits. Upper extremity pulses and femoral pulses were symmetrical and normal. Abdominal aorta not palpable. No bruits. Pedal pulses were slightly reduced. No dependent edema or varicose veins. EXTREMITIES: No clubbing, peripheral cyanosis or splinter hemorrhages. GASTROINTESTINAL: Soft, nontender, overweight abdomen with no hepatosplenomegaly. Liver span 8 cm in the right midclavicular line. Rectal examination not indicated. MUSCULOSKELETAL: No apparent joint deformity. Muscular strength and tone appear to be normal. No abnormal movements. Normal spine curvature. NEUROLOGIC/PSYCHIATRIC: Was able to relate a fair history with obvious memory problems. Affect was fairly flat. Normal symmetrical facial, eye and extremity movements. No involuntary movements. SKIN: No rashes, ecchymotic lesions or pallor. INVESTIGATIONS: Portable upright chest x-ray taken in the emergency room February 11, 2018 was reviewed independently and shows obvious cardiomegaly, even allowing for this portable technique. Slightly unfolded thoracic aorta. Pulmonary vasculature however, appeared to be normal. Lung king were fairly clear with no pleural effusion. EKG: Reviewed independently from February 11 at 04:16 p.m. showed underlying sinus rhythm, rate approximately 62 bpm with left atrial conduction disturbance, baseline first-degree AV block and obvious second-degree AV block, Mobitz type I. Episode of 2:1 AV conduction. Somewhat poor precordial R-wave progression, cannot rule out prior septal injury. Lateral ST / T-wave abnormalities but not significantly changed from April 08, 2017 other than the AV block. LABORATORY DATA: Blood work today shows a hemoglobin of 11.8. Normal white blood cell count and platelet count. Electrolytes were normal with BUN 29, creatinine 1.1, fasting glucose 87, serial Troponin I levels are negative. TSH was normal at 1.8. Liver function studies were normal with albumin 4.1. Urinalysis with his Perdomo specimen showed microscopic hematuria and pyuria with leukocyte esterase +2. Blood and urine cultures are pending at this time. IMPRESSION/PLAN: 1. AV block (unspecified): Off negative chronotropic therapy has evidence of high-grade AV block intermittently with rates dropping down into the low 30s -- 2:1 AV conduction during wakeful hours. Has noticed some increasing ease of fatigue but only transient positional lightheadedness and no falls. In the absence of potentially reversible aggravating factor, we have recommended implantation of permanent dual-chamber pacemaker. We have discussed the procedure, indication and potential risks with the patient and his brother, Azar, who appeared to understand and agreed. We have made tentative arrangements for this implantation under monitored local anesthesia tomorrow morning at 8:00 2. Abnormal EKG: Poor precordial R-wave progression, possibly related to prior septal injury. His prior echocardiogram showed septal and apical hypokinesis. Lateral repolarization abnormalities attributed to his chronic hypertension and not changed from our tracings of last March. 3. Coronary artery disease ([place] vessel) / post non-ST segment elevation myocardial infarction / post multivessel coronary stenting: Has been free of symptomatic myocardial ischemia on his current low-level activity. Has been tolerating his AYDEE inhibitor, atorvastatin, and dual platelet therapy without adverse effect. EKGs as mentioned above. Troponin I levels have been negative. Once his pacemaker has been implanted, we will resume at least low-dose carvedilol beta-porsha therapy in light of his hypertension, slight left ventricular enlargement and diabetes mellitus. 4. Hypertensive heart disease (benign with her heart failure): Previous presentation with flash pulmonary edema February 2017 was likely related to the combination of underlying left ventricular diastolic dysfunction with chronic hypertension and his acute myocardial ischemia. Presently has no symptoms or signs of congestion, although has a very low level of activity. Admission chest x-ray does show cardiomegaly. Previous echocardiogram showed at least a mildly dilated left ventricle and left atrium with localized wall motion abnormality and at least mild impairment of left ventricular function. A followup echocardiogram has been requested and will be reported separately. Current blood pressure would be considered adequately controlled on his lisinopril and spironolactone. In light of his left ventricular enlargement, hypertension and diabetes, we would like to introduce at least low-dose carvedilol once his permanent pacemaker is implanted. We intend to follow him closely with you and appreciate the opportunity to participate in his care. Thank you, Stephen Massey MD, [facility]
[2018-02-12 19:49] VITALS: BP 159/59
[2018-02-12] MEDS: ATORVASTATIN 20 MG TAB PO SCH (20:46)
[2018-02-13] VITALS (13 sets, daily range): BP systolic 118–181; BP diastolic 63–94
--- NOTE | 2018-02-13 04:15 | ECHO ---
DATE OF PROCEDURE: 02/12/2018 AGE: 67 GENDER: Male REFERRING PHYSICIAN: Dr. Stephen Massey. HEIGHT: 70 inches. WEIGHT: 189 pounds. BODY SURFACE AREA: 2.04 sq m. INPATIENT: PCU Room 3224 INDICATION: Abnormal EKG/AV block (unspecified). Coronary artery disease post non-Q wave myocardial infarction ([place]). History of hypertension with prior flash pulmonary edema. MEASUREMENTS: 2D MEASUREMENTS: RV - 4.6 cm LV- 5.1 cm Septum - 1.2 cm Posterior wall - 1.2 cm Aortic root - 3.2 cm LA - 4.2 cm LVEF - 60-65% DOPPLER MEASUREMENTS: AV - 2.0 m/s LVOT - 0.98 m/s Mean AV gradient - 7.0 mmHg Dimensionless index: 0.5 MV-E: 190 A: 185 EA ratio 1 Early mitral deacceleration time: 150 ms E-prime - 11 E/E prime ratio - 17 PCWP - 25.7 mmHg PV - 0.84 m/s Pulmonary artery acceleration time - 130 ms RVSP - 38 mmHg IVC - 1.9 cm COMMENTS: Underlying sinus rhythm with second-degree AV block Mobitz type I and rates as low as 38 observed during the study. M-mode and two-dimensional echocardiography was performed with pulsed, continuous wave, color flow and tissue Doppler studies. Borderline concentric left ventricular hypertrophy with localized septal hypo- to akinesis but other wall motion was hyperkinetic. Mildly dilated left atrium with Doppler evidence of an impairment of LV relaxation and elevated mean left atrial pressure. Mildly dilated right heart chambers with normal right ventricular free wall motion and Doppler evidence of at least mild pulmonary hypertension. Normal IVC size with slightly reduced respiratory collapse in keeping with central venous pressure of at least 10 mmHg. Mild to moderate aortic valvular sclerosis without stenosis but at least mild to moderate insufficiency. Normal aortic root size. Mild mitral annular calcification without inflow tract obstruction and only trace to mild insufficiency. Normal appearing tricuspid valve with mild to moderate insufficiency. No apparent intracardiac mass or pericardial effusion. cc: DO ALEXANDRIA Breaux
[2018-02-13 04:57] LABS: HEMATOCRIT 34.9 % (42.0-52.0); HEMOGLOBIN 11.7 g/dl (13.5-17.5); MEAN CORPUSCULAR HEMOGLOBIN 29.2 pg (27.0-33.0); MEAN CORPUSCULAR HGB CONC 33.5 g/dl (32.0-36.5); PLATELET COUNT, AUTOMATED 197 10^3/uL (150-450); RED BLOOD COUNT 4.01 10^6/uL (4.30-6.10); WHITE BLOOD COUNT 8.8 10^3/uL (4.0-10.0)
[2018-02-13 05:20] LABS: BLOOD UREA NITROGEN 25 MG/DL (7-18); CALCIUM LEVEL 8.2 MG/DL (8.8-10.2); CARBON DIOXIDE LEVEL 23 MEQ/L (21-32); CHLORIDE LEVEL 109 MEQ/L (98-107); CREATININE FOR GFR 1.14 MG/DL (0.70-1.30); GLOMERULAR FILTRATION RATE > 60.0 (>49); GLUCOSE, FASTING 84 MG/DL (70-100); POTASSIUM SERUM 5.2 MEQ/L (3.5-5.1); SODIUM LEVEL 137 MEQ/L (136-145)
[2018-02-13] MEDS: SLF 3 ML SYR IV SCH ×3 (05:31→21:14)
[2018-02-13] MEDS ORDERED: LR 1,000 ML IV SCH (06:00)
[2018-02-13] MEDS ORDERED: PROPOFOL 200 MG/20 ML VIAL As Ordered ONE ×2 (07:19→09:10)
[2018-02-13] MEDS ORDERED: MIDAZOLAM INJ 2 MG/2 ML VIAL (J2250) As Ordered ONE (07:20)
[2018-02-13] MEDS ORDERED: fentaNYL 100 MCG/2 ML INJECTION (J3010) As Ordered ONE (07:20)
[2018-02-13] MEDS ORDERED: ONDANSETRON 4MG/2ML VIAL (J2405) As Ordered ONE (07:21)
[2018-02-13] MEDS ORDERED: LIDOCAINE 1% SDV INJ 30 ML VIAL As Ordered ONE (07:51)
[2018-02-13] MEDS ORDERED: ceFAZolin 2 GM/D5W 50 ML IV BAG (J0690 PER 500MG) As Ordered ONE (08:20)
--- NOTE | 2018-02-13 09:59 | REP ---
Clinical: Pacemaker placement . Comparison: 02/11/2018 . Findings: Pacemaker in satisfactory position with leads overlying the right atrium and right ventricle. The mediastinum and cardiac silhouette are stable and within normal limits for portable technique. The lung king are clear without acute consolidation, effusion, or pneumothorax. Skeletal structures are intact. Impression: No acute cardiopulmonary process appreciated. Satisfactory pacemaker placement. Electronically Signed by Azar Burkett MD 02/13/2018 09:52 A
[2018-02-13] MEDS ORDERED: ONDANSETRON 4MG/2ML VIAL (J2405) IV PRN (10:00)
[2018-02-13] MEDS ORDERED: PERCOCET 5MG/325MG TAB PO PRN (10:00)
[2018-02-13] MEDS ORDERED: fentaNYL 100 MCG/2 ML INJECTION (J3010) IV PRN (10:00)
--- NOTE | 2018-02-13 10:20 | RO ---
DATE OF PROCEDURE: 02/13/2018 PREOPERATIVE DIAGNOSES: 1. Intermittent high-grade atrioventricular (AV) block. 2. Coronary artery disease ([place] vessel/post myocardial infarction February 2017). POSTOPERATIVE DIAGNOSES: 1. Intermittent high-grade atrioventricular (AV) block. 2. Coronary artery disease ([place] vessel/post myocardial infarction February 2017). PROCEDURE: Implantation of permanent dual-chamber pacemaker. SURGEON/IMPLANTING CROWN WHEEL ASSEMBLER: Dr. Stephen Massey HOME DAY CARE PROVIDER: ANESTHESIOLOGIST: Dr. Jared Henderson TYPE OF ANESTHESIA: Monitored local anesthesia. DESCRIPTION OF PROCEDURE: With the patient in the fasting state, having signed informed consent and having received Ancef 2 grams IV premedication, he was taken to the operating theater. Numerous skin electrodes were applied to facilitate continuous echocardiographic monitoring. The left subclavian region was prepped and draped in the usual fashion and the skin was infiltrated with 1% Xylocaine. The left subclavian vein was catheterized using a Seldinger technique. A 5 cm linear incision was then made several centimeters below and parallel to the left clavicle. Dissection was carried down to the level of the pectoralis fascia and a pocket was fashioned below the level of the incision line. Two bipolar screw-in active fixation steroid-eluting pacing leads were positioned to the right ventricular apex and high right atrial appendage under fluoroscopic electrocardiographic control. The ventricular lead ([employer], model number [id number], serial number [id number]) measurements were: Stimulation threshold 0.9V/0.4 ms/impedance 644 ohms. The R wave amplitude measured 5.0 mV. The atrial lead ([employer], model number [id number], serial number [id number]) measurements were: Stimulation threshold 1.0V/0.4 ms/impedance 385 ohms. The P wave amplitude measured 2.1 mV. These leads were secured in position with sleeves sutured at their insertion site. They were then connected to a new dual-chamber pulse generator - MRI compatible ([employer] [facility], model number [id number], serial number [id number]) and appropriate DDD pacing was documented. The generator was placed in the pocket and secured in position with a suture through the upper right-hand corner of the epoxy header. The subcutaneous tissues were approximated using a running chromic suture, and the skin was closed using param. No apparent complications. Estimated blood loss less than 10 mL despite to his aspirin and Plavix therapy. He will be returned to the telemetry floor for observation overnight. His postoperative portable upright chest x-ray showed good lead placement with no pneumothorax. His EKG postoperatively showed consistent AV sequentially paced rhythm at 60 beats per minute (bpm) with QRS complexes that had a left bundle branch block configuration and leftward axis in keeping with RV apical stimulation. He will be receiving Ancef 1 gram IV every 8 hours for three more doses and followup PA and left lateral chest x-ray and device testing will be performed tomorrow morning prior to his tentative discharge home.
[2018-02-13] MEDS: SPIRONOLACTONE 25 MG TAB PO SCH (10:55)
[2018-02-13] MEDS: TAMSULOSIN 0.4 MG CAP PO SCH (10:55)
[2018-02-13] MEDS: metFORMIN (GLUCOPHAGE) 1000 MG TABLET PO SCH ×2 (10:55→18:44)
[2018-02-13] MEDS: LISINOPRIL 20 MG TAB PO SCH (10:56)
--- NOTE | 2018-02-13 13:35 | ECGEPIP ---
Stationary ECG Study [facility] Test Date: 2018-02-13 Pat Name: JOSE BOSTON Department: Room: [place] [address] Gender: M Featheredger And Reducer Machine: RF : [id number] Requested By: Stephen Massey Order Number: [id number] Reading MD: Stephen Massey Measurements Intervals [place] Rate: 58 P: 128 CO: 197 QRS: 264 QRSD: 188 T: 77 QT: 516 QTc: 509 Interpretive Statements Consistent AV sequentially paced rhythm Paced QRS complexes with leftward axis and LBBB configuration in keeping with RV apical stimulation. Pacemaker new from 02/11/18. Electronically Signed On 02-13-2018 13:35:31 EST by Stephen Massey
--- NOTE | 2018-02-13 13:57 | IPNPDOC ---
Date Seen The patient was seen on 02/13/18. Progress Note SUBJECTIVE: Patient tells me that he is feeling better at this time he has no complaints whatsoever is bothering bedside rhythm and states that the patient is home alone most of the day and he is unsure about his brother's ability to care for himself following pacemaker placement. OBJECTIVE PHYSICAL EXAMINATION: VITAL SIGNS: Please see below. GENERAL: He is a somewhat disheveled elderly man sitting up in bed eating breakfast no acute distress HEENT: Cranial nerves II through XII appear to be grossly intact CARDIOVASCULAR: S1-S2 pacemaker incision site dressing is clean dry and intact he is using a sling for his left arm RESPIRATORY: Clear to auscultation bilaterally. ABDOMINAL: Bowel sounds are present abdomen soft and nontender EXTREMITIES: No clubbing cyanosis or edema he has a Perdomo catheter in place draining yellow urine LABORATORY DATA, IMAGING STUDIES, MICROBIOLOGY: Please see below. Echocardiogram: Borderline concentric left ventricular hypertrophy with localized septal hypo- to akinesis but other wall motion was hyperkinetic. Mildly dilated left atrium with Doppler evidence of an impairment of LV relaxation and elevated mean left atrial pressure. Mildly dilated right heart chambers with normal right ventricular free wall motion and Doppler evidence of at least mild pulmonary hypertension. Normal IVC size with slightly reduced respiratory collapse in keeping with central venous pressure of at least 10 mmHg. Mild to moderate aortic valvular sclerosis without stenosis but at least mild to moderate insufficiency. Normal aortic root size. Mild mitral annular calcification without inflow tract obstruction and only trace to mild insufficiency. Normal appearing tricuspid valve with mild to moderate insufficiency. No apparent intracardiac mass or pericardial effusion. DVT prophylaxis ordered?: We'll start teds and sequentials and urge ambulation ASSESSMENT AND PLAN: This is a 67-year-old man with heart block. PROBLEMS: 1. Unspecified high-grade A-V block: 221 AV conduction cardiology help greatly appreciated patient is planned for pacemaker placement today he is nothing by mouth 2. Perdomo catheter and urinary retention: His Perdomo was apparently leaking but this was adjusted in the emergency room and appears of resolved is draining clear yellow urine at this time it appears to follow quite closely and regularly in urology clinic for his catheter, BPH and hypotonic bladder. Patient is continued on tamsulosin 3. Chronic diastolic heart failure: Echo as outlined above he is on an AYDEE inhibitor and spironolactone curiously he was not on a beta porsha however following pacemaker placement sounds. There is plan to start him on 1. He appears euvolemic at this time 4. Diabetes: Patient is continued on metformin and lisinopril 5. Hypertension: The patient is on lisinopril spironolactone and likely start a beta porsha soon 6. Coronary artery disease with 2 stents in February of this year: The patient is on aspirin and statin Plavix curiously plan to initiate beta porsha therapy post pacemaker placement DISPOSITION: Possibly home tomorrow pending cardiac clearance VS, I&O, [facility] Vital Signs/I&O Vital Signs Date Time Temp Pulse Resp B/P (MAP) Pulse Ox O2 Delivery O2 Flow Rate FiO2 02/13/18 13:25 97.9 65 19 146/67 (93) 99 Room Air 02/13/18 10:00 10 I&O- Last 24 Hours up to 6 AM 02/13/18 06:00 Intake Total 1320 ml Output Total 400 ml Balance 920 ml Laboratory Data 24H LABS Laboratory Tests 2 02/13/18 04:33: Nucleated Red Blood Cells % (auto) 0.0, Anion Gap 5L, Glomerular Filtration Rate > 60.0, Blood Urea Nitrogen 25H, Creatinine 1.14, Sodium Level 137, Potassium Level 5.2H, Chloride Level 109H, Carbon Dioxide Level 23, Calcium Level 8.2L 02/13/18 09:48: Bedside Glucose (Misc Panel) 87 CBC/BMP Laboratory Tests 02/13/18 04:33 Red Blood Count 4.01 L, Mean Corpuscular Volume 87.0, Mean Corpuscular Hemoglobin 29.2, Mean Corpuscular Hemoglobin Concent 33.5, Red Cell Distribution Width 13.1, Calcium Level 8.2 L Microbiology Microbiology 02/11/18 Blood Culture - Preliminary, Resulted No growth after 24 hours . All specim... 02/11/18 Blood Culture - Preliminary, Resulted No growth after 24 hours . All specim... 02/11/18 Urine Culture - Final, Complete Staphylococcus Epidermidis THOM PEOPLES MD Feb 13, 2018 13:57
[2018-02-13] MEDS: ceFAZolin SOD 1 GM in D5W MINI-BAG PLUS 50 ML IV SCH (17:09)
[2018-02-13] MEDS: ATORVASTATIN 20 MG TAB PO SCH (21:13)
[2018-02-13] MEDS: traMADol 50 MG TAB PO PRN (21:14)
[2018-02-14] VITALS (7 sets, daily range): BP systolic 118–160; BP diastolic 57–84
[2018-02-14] MEDS: ceFAZolin SOD 1 GM in D5W MINI-BAG PLUS 50 ML IV SCH ×2 (00:39→08:42)
[2018-02-14] MEDS: ACETAMINOPHEN TAB 650MG DOSE (2X325MG) PO PRN ×2 (00:39→12:13)
[2018-02-14] MEDS: SLF 3 ML SYR IV SCH ×3 (05:08→22:10)
[2018-02-14 05:55] LABS: HEMATOCRIT 34.2 % (42.0-52.0); HEMOGLOBIN 11.4 g/dl (13.5-17.5); MEAN CORPUSCULAR HEMOGLOBIN 29.4 pg (27.0-33.0); MEAN CORPUSCULAR HGB CONC 33.3 g/dl (32.0-36.5); MEAN CORPUSCULAR VOLUME 88.1 fl (80.0-96.0); PLATELET COUNT, AUTOMATED 188 10^3/uL (150-450); RED BLOOD COUNT 3.88 10^6/uL (4.30-6.10); WHITE BLOOD COUNT 8.5 10^3/uL (4.0-10.0)
[2018-02-14 06:25] LABS: BLOOD UREA NITROGEN 22 MG/DL (7-18); CALCIUM LEVEL 8.1 MG/DL (8.8-10.2); CARBON DIOXIDE LEVEL 24 MEQ/L (21-32); CHLORIDE LEVEL 106 MEQ/L (98-107); CREATININE FOR GFR 1.21 MG/DL (0.70-1.30); GLOMERULAR FILTRATION RATE > 60.0 (>49); GLUCOSE, FASTING 83 MG/DL (70-100); POTASSIUM SERUM 5.1 MEQ/L (3.5-5.1); SODIUM LEVEL 136 MEQ/L (136-145)
--- NOTE | 2018-02-14 08:30 | REP ---
Clinical: Status post pacemaker. Technique: PA and lateral. Findings: Newly placed pacemaker identified over the left chest wall with leads overlying the right atrium and right ventricle. Cardiac silhouette is normal. Lung king are clear. No consolidation, effusion, or pneumothorax. Impression: Satisfactory pacemaker placement. No acute cardiopulmonary process appreciated. Electronically Signed by Azar Burkett MD 02/14/2018 08:21 A
[2018-02-14] MEDS: metFORMIN (GLUCOPHAGE) 1000 MG TABLET PO SCH ×2 (08:42→17:29)
[2018-02-14] MEDS: TAMSULOSIN 0.4 MG CAP PO SCH (08:42)
[2018-02-14] MEDS: SPIRONOLACTONE 25 MG TAB PO SCH (08:42)
[2018-02-14] MEDS: LISINOPRIL 20 MG TAB PO SCH (08:42)
--- NOTE | 2018-02-14 14:40 | IPNPDOC ---
Text Note Date of Service The patient was seen on 02/14/18. NOTE Subjective: Patient was seen and examined at the bedside. Patient any complaints this morning. Denies any nausea, vomiting, abdominal pain. Denies any chest pain, s hortness of breath or palpitations. Objective: Vitals (See below) General: Lying in bed, no acute distress, comfortable, Awake / Alert HEENT: NC, AT CVS: RRR, +S1S2 Lungs: Fair air entry b/l, -w/r/r Abdomen: Soft, ND, NT Extremities: - Edema, - Calf tenderness Assessment and plan: s/p Second Degree AV block - Mobitz Type I - 2:1 AV conduction - s/p Pacemaker placement 02/[address] Massey - Cardiology on consultation; appreciate their input Urinary retention with Perdomo catheter - possibly 2/2 BPH / Hypotonic bladder - Perdomo was leaking in ER and had been adjusted - c/w Tamsulosin Chronic Diastolic CHF - ECHO 02/12: 60%, Diastolic dysfunction - c/w Lisinopril, Tamsulosin - Consider starting beta porsha considering PM is in place DM2 - c/w Metformin HTN - BP well controlled - c/w Lisinopril and Spironolactone CAD - s/p 2 stents (02/2017) - ASA and Plavix discontinued on 02/12 pre-PM insertion - Consider restarting ASA DVT prophylaxis - c/w SCDs Disposition: - c/w PT VS,Fishbone, I+O VS, Fishbone, I+O Laboratory Tests 02/14/18 05:29 Red Blood Count 3.88 L, Mean Corpuscular Volume 88.1, Mean Corpuscular Hemoglobin 29.4, Mean Corpuscular Hemoglobin Concent 33.3, Red Cell Distribution Width 13.1, Calcium Level 8.1 L Vital Signs Date Time Temp Pulse Resp B/P (MAP) Pulse Ox O2 Delivery O2 Flow Rate FiO2 02/14/18 12:00 97.2 69 18 118/57 (77) 98 Room Air 02/13/18 10:00 10 I&O- Last 24 Hours up to 6 AM 02/14/18 06:00 Intake Total 1935 ml Output Total 2910 ml Balance -975 ml JOSE ANTONIO PULIDO MD Feb 14, 2018 14:40
--- NOTE | 2018-02-14 15:58 | ECGEPIP ---
Stationary ECG Study [facility] Test Date: 2018-02-14 Pat Name: JOSE BOSTON Department: Room: [place] [address] Gender: M Pointing Machine Operator: RF : 1950 Requested By: Stephen Massey Order Number: [id number] Reading MD: Stephen Massey Measurements Intervals [place] Rate: 66 P: 72 CT: 207 QRS: 260 QRSD: 175 T: 74 QT: 479 QTc: 505 Interpretive Statements Dual-chamber pacemaker Normal sinus rhythm with atrial sensing and tracking with consistent ventricular paced rhythm. Extreme left axis with LBBB paced QRS complexes in keeping with RV apical stimulation. Electronically Signed On 02-14-2018 15:57:47 EST by Stephen Massey
--- NOTE | 2018-02-14 19:00 | IPN ---
DATE: 02/14/2018 CARDIOLOGY PROGRESS NOTE SUBJECTIVE: The patient has noticed mild incisional soreness following his pacemaker implant yesterday but has been up in the [place] walking without lightheadedness or dizziness. Has been free of anginal discomfort and denies shortness of breath. No obvious incisional bleeding despite his Plavix and aspirin therapy. OBJECTIVE: Simple, slightly overweight, late middle-aged male lying comfortably with the head of bed elevated 30 degrees. Heart rate 70 beats per minute, blood pressure 118/60, respiratory rate 16, oxygen saturation 98% on room air. Afebrile. Weight has been essentially stable. Neck veins did not appear to be elevated. Slightly increased anteroposterior chest diameter with slightly swollen pacer pocket and slight oozing from his pacemaker incision. No erythema. Good air entry over both lung king with no abnormal adventitious sounds. No dependent edema. Chest x-ray: PA and left lateral study earlier today was reviewed independently and shows at least borderline cardiomegaly with CT ratio 16.5 32. Stable pacing lead position with clear lung king. No pneumothorax. Pacemaker pulse generator left subclavian region. EKG: Tracing taken earlier today shows sinus rhythm with appropriate atrial sensing and tracking with consistent ventricular pacing. Paced right ventricular complexes appear unchanged from yesterday. Blood work: Hemoglobin is essentially stable at 11.4. Normal white blood cell count and platelet count. His electrolytes are normal. Potassium of 5.2, is down to 5.1 today. BUN has decreased from 33 on admission to 22 with hoahaoism of a normal heart rate. His creatinine has also improved from 1.38 on admission to 1.2. Fasting glucose normal at 83. IMPRESSION/PLAN: 1. AV block (unspecified) / dual-chamber pacemaker in situ: Some mild oozing from his pacer incision related to his dual antiplatelet therapy. This has been on hold for the past 24 hours. My intent would be to resume this therapy not tomorrow but the day after. I have requested that he continued to wear his sling and avoid much movement of his left arm temporarily. Complete pacemaker interrogation was performed and showed excellent intracardiac electrograms and pacing thresholds. The auto capture function was activated in both the atria and ventricle channels. Estimated battery longevity in excess of 10 years. I am cautiously optimistic he will be able to be discharged tomorrow morning. 2. Coronary artery disease ([place] vessel) / post non-ST elevation infarction / post multivessel coronary stenting: With his current level of activity, has remained free of anginal chest discomfort. Currently remains on protective lisinopril and atorvastatin. As mentioned, his aspirin and Plavix therapy will be resumed at February 16, 2018. 3. Hypertensive heart disease (Benign with heart failure) / heart failure (diastolic / chronic): Has had documented left ventricular diastolic dysfunction since at least February 2017. Following his stenting procedure at that time, he has been free of symptomatic congestion. Currently does not have any symptoms or signs of congestion despite his echocardiographic findings February 12 showing an elevated mean left atrial pressure. Currently remains on lisinopril antihypertensive therapy alone. 4. Aortic valve disorder (automatic): His recent echocardiogram showed degenerative changes of both his mitral and aortic valvular apparatus with mild to moderate aortic insufficiency but only trace to mild mitral insufficiency. He does not have clear exculpatory features of either insufficiency or lesion. No special measures beyond optimal blood pressure control would be deemed necessary. SBE antibiotic prophylaxis is not indicated. As mentioned, I am optimistic he will be able to be discharged tomorrow morning, and we will arrange for a followup office visit for wound check and staple removal in 7-10 days' time. A[place]RI[place]
[2018-02-14] MEDS: ATORVASTATIN 20 MG TAB PO SCH (22:10)
[2018-02-15] VITALS (7 sets, daily range): BP systolic 128–166; BP diastolic 60–77
[2018-02-15 05:16] LABS: HEMATOCRIT 36.5 % (42.0-52.0); HEMOGLOBIN 12.3 g/dl (13.5-17.5); MEAN CORPUSCULAR HEMOGLOBIN 29.1 pg (27.0-33.0); MEAN CORPUSCULAR HGB CONC 33.7 g/dl (32.0-36.5); MEAN CORPUSCULAR VOLUME 86.5 fl (80.0-96.0); PLATELET COUNT, AUTOMATED 220 10^3/uL (150-450); RED BLOOD COUNT 4.22 10^6/uL (4.30-6.10); WHITE BLOOD COUNT 11.5 10^3/uL (4.0-10.0)
[2018-02-15 05:46] LABS: BLOOD UREA NITROGEN 25 MG/DL (7-18); CALCIUM LEVEL 8.6 MG/DL (8.8-10.2); CARBON DIOXIDE LEVEL 24 MEQ/L (21-32); CHLORIDE LEVEL 104 MEQ/L (98-107); CREATININE FOR GFR 1.17 MG/DL (0.70-1.30); GLOMERULAR FILTRATION RATE > 60.0 (>49); GLUCOSE, FASTING 95 MG/DL (70-100); POTASSIUM SERUM 5.2 MEQ/L (3.5-5.1); SODIUM LEVEL 134 MEQ/L (136-145)
[2018-02-15] MEDS: SLF 3 ML SYR IV SCH ×4 (06:00→21:43)
[2018-02-15] MEDS: TAMSULOSIN 0.4 MG CAP PO SCH (08:20)
[2018-02-15] MEDS: SPIRONOLACTONE 25 MG TAB PO SCH (08:20)
[2018-02-15] MEDS: metFORMIN (GLUCOPHAGE) 1000 MG TABLET PO SCH ×2 (08:20→18:36)
[2018-02-15] MEDS: LISINOPRIL 20 MG TAB PO SCH (08:20)
[2018-02-15] MEDS ORDERED: TRAM50TA2 PO (11:10)
[2018-02-15] MEDS: traMADol 50 MG TAB PO PRN (13:23)
[2018-02-15] MEDS: MIRALAX *UNIT DOSE* 17GM PACKET PO PRN (13:23)
--- NOTE | 2018-02-15 13:57 | IPNPDOC ---
Text Note Date of Service The patient was seen on 02/15/18. NOTE Subjective: Patient was seen and examined at the bedside. Patient continues to work with physical therapy, however, has yet to clear. He denies any chest pain, shortness of breath or palpitations. Denies nausea, vomiting, abdominal pain, constipation or diarrhea. Denies any discomfort with urination. Objective: Vitals (See below) General: Lying in bed, no acute distress, comfortable, Awake / Alert HEENT: NC, AT CVS: RRR, +S1S2, dressing on left anterior chest wall remains present Lungs: Fair air entry b/l, auscultation is without any wheezing, rales or rhonchi Abdomen: Soft, nondistended, without tenderness Extremities: No evidence of lower extremity edema, - Calf tenderness Assessment and plan: s/p Second Degree AV block - Mobitz Type I - 2:1 AV conduction - s/p Pacemaker placement 02/[address] Massey - Cardiology on consultation; appreciate their input - Patient has been cleared from cardiology standpoint for discharge home; will hold off on aspirin and Plavix given mild oozing of blood around pacemaker site - Will have outpatient follow-up with Dr. Massey within the next 7-10 days - Will need to continue work with physical therapy until patient is cleared for discharge home Urinary retention with Perdomo catheter - possibly 2/2 BPH / Hypotonic bladder - Perdomo was leaking in ER and had been adjusted - c/w Tamsulosin Chronic Diastolic CHF - ECHO 02/12: 60%, Diastolic dysfunction - c/w Lisinopril, Tamsulosin DM2 - c/w Metformin HTN - BP well controlled - c/w Lisinopril and Spironolactone CAD - s/p 2 stents (02/2017) - ASA and Plavix discontinued on 02/12 pre-PM insertion - Will have outpatient follow-up with Dr. Massey for reinstitution of antiplatelet therapy DVT prophylaxis - c/w SCDs Disposition: - c/w PT until cleared for discharge home VS,[place]ronbone, I+O VS, Aronbone, I+O Laboratory Tests 02/15/18 04:52 Red Blood Count 4.22 L, Mean Corpuscular Volume 86.5, Mean Corpuscular Hemoglobin 29.1, Mean Corpuscular Hemoglobin Concent 33.7, Red Cell Distribution Width 12.9, Calcium Level 8.6 L Vital Signs Date Time Temp Pulse Resp B/P (MAP) Pulse Ox O2 Delivery O2 Flow Rate FiO2 02/15/18 13:23 20 02/15/18 12:00 97.6 66 128/60 (82) 100 02/14/18 20:00 Room Air 02/13/18 10:00 10 I&O- Last 24 Hours up to 6 AM 02/15/18 06:00 Intake Total 1490 ml Output Total 3000 ml Balance -1510 ml JOSE ANTONIO PULIDO MD Feb 15, 2018 13:57
[2018-02-15] MEDS: ATORVASTATIN 20 MG TAB PO SCH (21:06)
[2018-02-15] MEDS: MOM 30ML SUSPENSION UDC PO PRN (21:44)
[2018-02-16 04:00] VITALS: BP 174/79
[2018-02-16 04:19] VITALS: BP 148/69
[2018-02-16 04:50] LABS: HEMATOCRIT 33.5 % (42.0-52.0); HEMOGLOBIN 11.3 g/dl (13.5-17.5); MEAN CORPUSCULAR HGB CONC 33.7 g/dl (32.0-36.5); MEAN CORPUSCULAR VOLUME 86.1 fl (80.0-96.0); PLATELET COUNT, AUTOMATED 195 10^3/uL (150-450); RED BLOOD COUNT 3.89 10^6/uL (4.30-6.10); WHITE BLOOD COUNT 9.1 10^3/uL (4.0-10.0)
[2018-02-16 05:11] LABS: BLOOD UREA NITROGEN 32 MG/DL (7-18); CALCIUM LEVEL 8.2 MG/DL (8.8-10.2); CARBON DIOXIDE LEVEL 26 MEQ/L (21-32); CHLORIDE LEVEL 102 MEQ/L (98-107); CREATININE FOR GFR 1.11 MG/DL (0.70-1.30); GLOMERULAR FILTRATION RATE > 60.0 (>49); GLUCOSE, FASTING 87 MG/DL (70-100); POTASSIUM SERUM 5.4 MEQ/L (3.5-5.1); SODIUM LEVEL 135 MEQ/L (136-145)
[2018-02-16 08:00] VITALS: BP 159/70
[2018-02-16] MEDS ORDERED: SOD POLYSTYRENE SULFONATE SUSP 15 GM/60 ML UD PO ONE (08:00)
[2018-02-16] MEDS: TAMSULOSIN 0.4 MG CAP PO SCH (08:09)
[2018-02-16] MEDS: SPIRONOLACTONE 25 MG TAB PO SCH (08:09)
[2018-02-16] MEDS: MOM 30ML SUSPENSION UDC PO PRN (08:09)
[2018-02-16] MEDS: metFORMIN (GLUCOPHAGE) 1000 MG TABLET PO SCH (08:09)
[2018-02-16] MEDS: MIRALAX *UNIT DOSE* 17GM PACKET PO PRN (08:09)
[2018-02-16 08:10] VITALS: BP 148/69
[2018-02-16] MEDS: LISINOPRIL 20 MG TAB PO SCH (08:10)
--- NOTE | 2018-02-16 11:47 | DS.PDOC ---
Discharge Summary General Date of Admission Feb 11, 2018 at 19:35 Date of Discharge 02/16/2017 Discharge Summary PROCEDURES PERFORMED DURING STAY: [None]. 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 Massey - Cardiology on consultation; appreciate their input - Patient has been cleared from cardiology standpoint for discharge home; will hold off on aspirin and Plavix given mild oozing of blood around pacemaker site - Outpatient follow-up with Dr. Massey within the next 7-10 days - Has cleared PT for discharge home Urinary retention with Perdomo catheter - possibly 2/2 BPH / Hypotonic bladder - Perdomo was leaking in ER and had been adjusted - c/w Tamsulosin Chronic Diastolic CHF - ECHO 02/12: 60%, Diastolic dysfunction - c/w Lisinopril, Tamsulosin DM2 - c/w Metformin HTN - BP well controlled - c/w Lisinopril and Spironolactone CAD - s/p 2 stents (02/2017) - ASA and Plavix discontinued on 02/12 pre-PM insertion - Outpatient follow-up with Dr. Massey for reinstitution of antiplatelet therapy DVT prophylaxis - c/w SCDs DISCHARGE MEDICATIONS: Please see below. ALLERGIES: Please see below. PHYSICAL EXAMINATION ON DISCHARGE: Vitals (See below) General: Lying in bed, no acute distress, comfortable, Awake / Alert HEENT: NC, AT CVS: RRR, +S1S2, Dressing in place on left chest wall Lungs: Fair air entry b/l, no evidence of rhonchi / rales / wheezing Abdomen: Soft, nondistended, without tenderness Extremities: LE without edema, - Calf tenderness LABORATORY DATA: Please see below. ACTIVITY: [As tolerated]. DISCHARGE PLAN: Follow up with Dr. Matthias Lloyd and Dr. Nabor Massey within the next 7 days. Remain compliant with treatment plan and medications. Return to the ER if you experience any problems. DISPOSITION: Home with services DISCHARGE CONDITION: [Stable]. TIME SPENT ON DISCHARGE: Greater than [35] minutes. Vital Signs/I&Os Vital Signs Date Time Temp Pulse Resp B/P (MAP) Pulse Ox O2 Delivery O2 Flow Rate FiO2 02/16/18 08:10 148/69 02/16/18 08:00 97.3 76 18 96 Room Air 02/13/18 10:00 10 I&O- Last 24 Hours up to 6 AM 02/16/18 06:00 Intake Total 1620 ml Output Total 1400 ml Balance 220 ml Laboratory Data Labs 24H Laboratory Tests 2 02/16/18 04:37: Nucleated Red Blood Cells % (auto) 0.0, Anion Gap 7L, Glomerular Filtration Rate > 60.0, Blood Urea Nitrogen 32H, Creatinine 1.11, Sodium Level 135L, Potassium Level 5.4H, Chloride Level 102, Carbon Dioxide Level 26, Calcium Level 8.2L CBC/BMP Laboratory Tests 02/16/18 04:37 Red Blood Count 3.89 L, Mean Corpuscular Volume 86.1, Mean Corpuscular Hemoglobin 29.0, Mean Corpuscular Hemoglobin Concent 33.7, Red Cell Distribution Width 12.9, Calcium Level 8.2 L Microbiology Microbiology 02/11/18 Blood Culture - Preliminary, Resulted No Growth after 72 hours. All specime... 02/11/18 Blood Culture - Preliminary, Resulted No Growth after 72 hours. All specime... 02/11/18 Urine Culture - Final, Complete Staphylococcus Epidermidis Discharge Medications Scheduled Aspirin (Aspir-81) 81 Mg Tab, 81 MG PO DAILY, (Reported) Atorvastatin Calcium (Atorvastatin Calcium) 40 Mg Tab, 40 MG PO QHS, (Reported) Clopidogrel Bisulfate (Clopidogrel) 75 Mg Tab, 75 MG PO DAILY, (Reported) Lisinopril (Lisinopril) 20 Mg Tab, 20 MG PO DAILY, (Reported) Metformin Hydrochloride (Metformin Hydrochloride E) 500 Mg Tab, 1,000 MG PO BID, (Reported) Spironolactone (Spironolactone) 25 Mg Tab, 25 MG PO DAILY, (Reported) Tamsulosin Hydrochloride (Flomax) 0.4 Mg Cap, 0.4 MG PO DAILY, (Reported) Scheduled PRN Nitroglycerin (Nitrostat) 0.4 Mg Subl, 0.4 MG SL NITRO PRN for CHEST PAIN, (Reported) Polyethylene Glycol (Miralax) 1 Pow Pow, 17 GM PO DAILY PRN for CONSTIPATION dilute in 8 ounces of water or juice Tramadol HCl (Tramadol HCl) 50 Mg Tab, 50 MG PO Q6HP PRN for MODERATE PAIN (PS 5-7) Allergies Coded Allergies: No Known Allergies (Unverified , 10/12/17) JOSE ANTONIO PULIDO MD Feb 16, 2018 11:47
[2018-02-16 12:00] VITALS: BP 120/60
== END 2018-02-16 14:24 | disposition home health service (06) | DRG 243 ==
LOC: EDBD 15:40 → M ED 15:40 → M ED INP 19:35 → M PCU 21:36
PROVIDERS: ADMIT Internal Medicine; ATTEND Internal Medicine
PROC: 0JH606Z Insertion of Pacemaker, Dual Chamber into Chest Subcutaneous Tissue and Fascia, Open Approach (ICD-10-PCS; 2018-02-13)
PROC: 02H60JZ Insertion of Pacemaker Lead into Right Atrium, Open Approach (ICD-10-PCS; 2018-02-13)
PROC: 02HK0JZ Insertion of Pacemaker Lead into Right Ventricle, Open Approach (ICD-10-PCS; principal; 2018-02-13 08:00)
DX: I44.1 Atrioventricular block, second degree (principal); I50.32 Chronic diastolic (congestive) heart failure; E11.9 Type 2 diabetes mellitus without complications; I25.10 Atherosclerotic heart disease of native coronary artery without angina pectoris; Z95.2 Presence of prosthetic heart valve; R33.9 Retention of urine, unspecified; N40.0 Benign prostatic hyperplasia without lower urinary tract symptoms; I11.0 Hypertensive heart disease with heart failure; Z79.82 Long term (current) use of aspirin; Z79.899 Other long term (current) drug therapy; I25.2 Old myocardial infarction

== ENCOUNTER 2018-02-20 13:16 | Emergency (ER) | payer MEDICARE, MEDICAID ==
[~2018-02-20 13:16] MED LIST changes: -AMLO10TA4 PO; +AMLO10TA5 PO; +METF-881 PO; +TRAM50TA2 PO
--- NOTE | 2018-02-20 14:46 | REP ---
KUB: Single view. History: Constipation. Comparison study: February 09, 2018. Findings: There is moderate formed stool in the rectum. There is moderate formed stool throughout the left colon and right colon as well consistent with constipation pattern. No small bowel dilation is seen. Flank stripes are intact. Psoas margins appear symmetric. There is a levoconvex curvature in the lumbar spine along with degenerative spondylosis changes. Impression: Moderate formed stool throughout the colon consistent with constipation. Electronically Signed by Luis Dhaliwal MD 02/20/2018 07:30 P
[2018-02-20] MEDS ORDERED: COLA100C5 PO (17:37)
[2018-02-20 18:03] VITALS: BP 146/67
== END 2018-02-20 18:40 | disposition home or self-care (01) ==
LOC: M ED 13:16
DX: E86.0 Dehydration (principal); K59.00 Constipation, unspecified; I25.2 Old myocardial infarction; E11.9 Type 2 diabetes mellitus without complications; I25.10 Atherosclerotic heart disease of native coronary artery without angina pectoris; Z95.0 Presence of cardiac pacemaker; Z98.61 Coronary angioplasty status

== ENCOUNTER → 2018-02-24 | Outpatient (REF) | payer MEDICARE, MEDICAID ==
[~2018-02-24] MED LIST changes: +COLA100C5 PO; +NYSTOI TOP
[2018-02-24 18:07] LABS: ALT/SGPT 33 U/L (12-78); BILIRUBIN,TOTAL 0.5 MG/DL (0.2-1.0); BLOOD UREA NITROGEN 28 MG/DL (7-18); CARBON DIOXIDE LEVEL 27 MEQ/L (21-32); CHLORIDE LEVEL 102 MEQ/L (98-107); GLOMERULAR FILTRATION RATE > 60.0 (>49); GLUCOSE, FASTING 105 MG/DL (70-100); POTASSIUM SERUM 5.4 MEQ/L (3.5-5.1); SODIUM LEVEL 137 MEQ/L (136-145)
[2018-02-24 18:22] LABS: HEMOGLOBIN A1c 5.8 %
== END ==
LOC: M SFHCPLAZ 14:59
DX: I44.1 Atrioventricular block, second degree (principal); E11.59 Type 2 diabetes mellitus with other circulatory complications; K59.01 Slow transit constipation
CPT/HCPCS: 36415; 80053; 83036; G0463

== ENCOUNTER 2018-03-02 14:01 | Emergency (ER) | payer MEDICARE, MEDICAID ==
[~2018-03-02] VITALS: Ht 177.8 cm; Wt 84.1 kg
[~2018-03-02 14:01] MED LIST changes: -NYSTOI TOP
[2018-03-02] MEDS ORDERED: NYSTOI TOP (14:22)
[2018-03-02] MEDS ORDERED: POLYSPORIN TOPICAL OINTMENT 15GM As Ordered ONE (14:48)
[2018-03-02] MEDS ORDERED: BACITRACIN OINT 30GM TOP ONE (15:00)
[2018-03-02 15:51] VITALS: BP 138/62
== END 2018-03-02 15:53 | disposition home or self-care (01) ==
LOC: EDBD 14:01 → M ED 14:01
DX: B37.42 Candidal balanitis (principal); Z96.0 Presence of urogenital implants; I50.9 Heart failure, unspecified; E11.9 Type 2 diabetes mellitus without complications; I10 Essential (primary) hypertension; N40.0 Benign prostatic hyperplasia without lower urinary tract symptoms; Z95.0 Presence of cardiac pacemaker; Z95.5 Presence of coronary angioplasty implant and graft; Z79.899 Other long term (current) drug therapy

== ENCOUNTER 2018-04-05 09:28 | Emergency (ER) | payer MEDICARE, MEDICAID ==
[~2018-04-05] VITALS: Ht 177.8 cm; Wt 84.0 kg
[~2018-04-05 09:28] MED LIST changes: +NYSTOI TOP
[2018-04-05 10:14] LABS: BASO # 0.1 10^3/uL (0.0-0.2); BASO % 0.8 % (0.0-1.0); EOS # 0.3 10^3/uL (0.0-0.50); EOS % 3.4 % (0.0-3.0); HEMATOCRIT 37.7 % (42.0-52.0); HEMOGLOBIN 12.5 g/dl (13.5-17.5); LYMPH # 1.1 10^3/uL (1.5-4.5); LYMPH % 13.2 % (24.0-44.0); MEAN CORPUSCULAR HEMOGLOBIN 29.7 pg (27.0-33.0); MEAN CORPUSCULAR HGB CONC 33.2 g/dl (32.0-36.5); MEAN CORPUSCULAR VOLUME 89.5 fl (80.0-96.0); MONO # 0.5 10^3/uL (0.0-0.8); MONO % 6.4 % (0.0-5.0); NEUTROPHILS # 6.4 10^3/uL (1.8-7.7); NEUTROPHILS % 75.8 % (36.0-66.0); PLATELET COUNT, AUTOMATED 226 10^3/uL (150-450); RED BLOOD COUNT 4.21 10^6/uL (4.30-6.10); WHITE BLOOD COUNT 8.4 10^3/uL (4.0-10.0)
[2018-04-05 10:30] LABS: INR 1.1; PROTHROMBIN TIME 14.3 SECONDS (12.1-14.4)
[2018-04-05 10:31] LABS: PARTIAL THROMBOPLASTIN TIME 34.1 SECONDS (25.4-37.6)
[2018-04-05 10:42] LABS: BLOOD UREA NITROGEN 23 MG/DL (7-18); CALCIUM LEVEL 8.8 MG/DL (8.8-10.2); CARBON DIOXIDE LEVEL 23 MEQ/L (21-32); CHLORIDE LEVEL 106 MEQ/L (98-107); CREATININE FOR GFR 1.16 MG/DL (0.70-1.30); GLOMERULAR FILTRATION RATE > 60.0 (>49); GLUCOSE, FASTING 82 MG/DL (70-100); POTASSIUM SERUM 5.6 MEQ/L (3.5-5.1); SODIUM LEVEL 138 MEQ/L (136-145)
--- NOTE | 2018-04-05 11:03 | REP ---
ABDOMEN SUPINE: 04/05/2018. Comparison: 02/20/2018, 02/09/2018. Clinical history: Pelvic pain, Perdomo catheter. Findings: There is a Perdomo catheter extending through the midline lower pelvis to the region of the bladder. There is moderate stool in the right transverse and proximal left colon and less in the distal left colon and sigmoid. Some stool in the rectal vault which I would regard as normal. There are diffuse degenerative disc and facet arthritic changes in lower lumbar spine. There is bilateral mild hip arthritis. No abnormal calcifications over the renal fossae or expected course of the ureters. Impression: 1. Perdomo catheter is in place over the midline lower pelvis, presumably within the bladder. 2. Mild to moderate constipation. No obstruction. 3. Degenerative changes spine and hips. No abnormal calcifications. Electronically Signed by Reyes Chang MD 04/05/2018 09:15 P
[2018-04-05] MEDS ORDERED: NS 500 ML IV ONE (12:00)
[2018-04-05] MEDS ORDERED: cefTRIAXone SOD 1 GM in D5W MINI-BAG PLUS 50 ML IV ONE (12:00)
[2018-04-05] MEDS ORDERED: EMLA CREAM 5GM (LIDOCAINE/PRILOCAINE) TOP ONE (12:30)
[2018-04-05] MEDS ORDERED: LIDOCAINE 2% 5ML JELLY UROJET TOP ONE ×2 (12:45)
[2018-04-05 13:50] VITALS: BP 128/76
== END 2018-04-05 14:55 | disposition home or self-care (01) ==
LOC: EDBD 09:28 → M ED 10:36
DX: N50.89 Other specified disorders of the male genital organs (principal); Z96.0 Presence of urogenital implants; I10 Essential (primary) hypertension; E11.9 Type 2 diabetes mellitus without complications; E78.00 Pure hypercholesterolemia, unspecified; N40.0 Benign prostatic hyperplasia without lower urinary tract symptoms; R62.50 Unspecified lack of expected normal physiological development in childhood; Z95.0 Presence of cardiac pacemaker; Z95.5 Presence of coronary angioplasty implant and graft; Z79.899 Other long term (current) drug therapy; Z79.84 Long term (current) use of oral hypoglycemic drugs
CPT/HCPCS: 51703; 74018; 80048; 81001; 85025; 85610; 85730; 87088; 87186; 96365; 99285; J0696

== ENCOUNTER 2018-04-06 07:00 | Emergency (ER) | payer MEDICARE, MEDICAID ==
[2018-04-06 11:25] VITALS: BP 138/71
== END 2018-04-06 11:57 | disposition home or self-care (01) ==
LOC: M ED 07:00
DX: T83.098A Other mechanical complication of other urinary catheter, initial encounter (principal); Y92.9 Unspecified place or not applicable; Y93.9 Activity, unspecified; I25.10 Atherosclerotic heart disease of native coronary artery without angina pectoris; E11.9 Type 2 diabetes mellitus without complications; I10 Essential (primary) hypertension; N40.0 Benign prostatic hyperplasia without lower urinary tract symptoms; R33.9 Retention of urine, unspecified; Z79.84 Long term (current) use of oral hypoglycemic drugs; Z79.899 Other long term (current) drug therapy

== ENCOUNTER 2018-05-04 11:40 | Emergency (ER) | payer MEDICARE, MEDICAID ==
[~2018-05-04] VITALS: Ht 177.8 cm; Wt 81.8 kg
[2018-05-04] MEDS ORDERED: CEPH500C PO (11:56)
[2018-05-04 14:15] VITALS: BP 160/68
== END 2018-05-04 15:45 | disposition home or self-care (01) ==
LOC: M ED 11:40 → EDBD 11:40 → M ED 15:45
DX: R10.30 Lower abdominal pain, unspecified (principal); Z96.0 Presence of urogenital implants; I11.9 Hypertensive heart disease without heart failure; I25.10 Atherosclerotic heart disease of native coronary artery without angina pectoris; I25.2 Old myocardial infarction; E78.9 Disorder of lipoprotein metabolism, unspecified; N40.0 Benign prostatic hyperplasia without lower urinary tract symptoms; Z95.5 Presence of coronary angioplasty implant and graft; Z95.0 Presence of cardiac pacemaker; Z79.899 Other long term (current) drug therapy; Z79.84 Long term (current) use of oral hypoglycemic drugs; Z79.2 Long term (current) use of antibiotics

== ENCOUNTER 2018-10-18 11:34 | Emergency (ER) | payer MEDICARE, MEDICAID, OTHER ==
[~2018-10-18 11:34] MED LIST changes: +CEPH500C PO
[2018-10-18 11:50] VITALS: BP 172/74
[2018-10-18 12:30] LABS: BASO # 0.1 10^3/uL (0.0-0.2); BASO % 1.1 % (0.0-1.0); EOS # 0.1 10^3/uL (0.0-0.5); EOS % 1.2 % (0.0-3.0); HEMATOCRIT 40.1 % (42.0-52.0); HEMOGLOBIN 13.5 g/dl (13.5-17.5); LYMPH % 12.6 % (24.0-44.0); MEAN CORPUSCULAR HEMOGLOBIN 29.9 pg (27.0-33.0); MEAN CORPUSCULAR HGB CONC 33.7 g/dl (32.0-36.5); MEAN CORPUSCULAR VOLUME 88.7 fl (80.0-96.0); MONO # 0.5 10^3/uL (0.0-0.8); MONO % 6.2 % (0.0-5.0); NEUTROPHILS # 6.4 10^3/uL (1.5-8.5); NEUTROPHILS % 78.2 % (36.0-66.0); PLATELET COUNT, AUTOMATED 221 10^3/uL (150-450); RED BLOOD COUNT 4.52 10^6/uL (4.30-6.10); WHITE BLOOD COUNT 8.2 10^3/uL (4.0-10.0)
[2018-10-18 12:57] LABS: ALBUMIN 3.6 GM/DL (3.2-5.2); ALT/SGPT 24 U/L (12-78); BILIRUBIN,DIRECT 0.2 MG/DL (0.0-0.2); BILIRUBIN,TOTAL 0.6 MG/DL (0.2-1.0); BLOOD UREA NITROGEN 25 MG/DL (7-18); CALCIUM LEVEL 8.6 MG/DL (8.8-10.2); CARBON DIOXIDE LEVEL 23 MEQ/L (21-32); CHLORIDE LEVEL 105 MEQ/L (98-107); CK-MB VALUE MASS 10.8 NG/ML (<3.6); CPK CREATINE PHOSPHOKINASE 96 U/L (39-308); GLOMERULAR FILTRATION RATE > 60.0 (>49); GLUCOSE, FASTING 112 MG/DL (70-100); MB/CK RELATIVE INDEX 11.25 (< OR =4); POTASSIUM SERUM 5.6 MEQ/L (3.5-5.1); SODIUM LEVEL 135 MEQ/L (136-145); THYROID STIMULATING HORMONE 0.946 uIU/ML (0.358-3.740); TOTAL PROTEIN 6.4 GM/DL (6.4-8.2); TROPONIN I 0.02 NG/ML (< 0.10)
[2018-10-18] MEDS ORDERED: cefTRIAXone SOD 1 GM in D5W MINI-BAG PLUS 50 ML IV ONE (13:00)
--- NOTE | 2018-10-18 13:12 | REP ---
Clinical: Altered mental status . Comparison: 02/14/2018 . Technique: PA and lateral. Findings: The mediastinum and cardiac silhouette are normal. The lung king are clear and without acute consolidation, effusion, or pneumothorax. The skeletal structures are intact and normal. Pacemaker in satisfactory position. Impression: 1. No acute cardiopulmonary process. Electronically Signed by Azar Burkett MD 10/18/2018 01:03 P
--- NOTE | 2018-10-18 13:25 | REP ---
CT brain without contrast: History: Altered mental status. No comparison brain imaging. CT findings: Preliminary digital cook fruit radiograph is unremarkable. Bone window settings demonstrate an intact bony calvarium. There is mild osteitis frontalis interna. This is a normal variant. Moderate vascular calcification is noted in the distal carotid and distal vertebral arteries bilaterally. The visualized paranasal sinuses are clear. No intraorbital abnormality is seen. On soft tissue window settings there is no evidence of intracranial hemorrhage. There is a periventricular low density area in the right frontal lobe consistent with a old deep white matter infarction with secondary enlargement of the frontal horn. There is a lacunar infarct in the basal ganglia on the right which is also old. There is a tiny old lacunar infarct in the head of the caudate nucleus on the left. Small vessel atherosclerotic changes are seen. No definite acute infarction is seen. No hemorrhage or extra-axial fluid collection is noted. No mass or midline shift. Impression: Old bilateral basal ganglia lacunar infarcts. Old periventricular infarct right frontal lobe. No intracranial hemorrhage or acute infarction seen. Small vessel changes vascular calcification and minimal diffuse atrophy. Electronically Signed by Luis Dhaliwal MD 10/18/2018 01:43 P
[2018-10-18] MEDS ORDERED: KEFL500C17 PO (14:34)
[2018-10-18] MEDS ORDERED: SOD POLYSTYRENE SULFONATE SUSP 15 GM/60 ML UD PO ONE (15:00)
--- NOTE | 2018-10-18 17:13 | ECGEPIP ---
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
== END 2018-10-18 16:09 | disposition home or self-care (01) ==
LOC: EDBD 11:34 → M ED 11:34
DX: Z95.0 Presence of cardiac pacemaker (principal); R94.31 Abnormal electrocardiogram [ECG] [EKG]; N39.0 Urinary tract infection, site not specified; E87.5 Hyperkalemia; I25.10 Atherosclerotic heart disease of native coronary artery without angina pectoris; E11.9 Type 2 diabetes mellitus without complications; I10 Essential (primary) hypertension; R33.9 Retention of urine, unspecified; Z95.5 Presence of coronary angioplasty implant and graft; Z79.84 Long term (current) use of oral hypoglycemic drugs; Z79.899 Other long term (current) drug therapy
CPT/HCPCS: 51703; 70450; 71046; 80048; 80076; 81001; 82550; 82553; 84443; 84484; 85025; 87088; 87186; 93005; 93041; 94760; 96374; 99285; J0696

== ENCOUNTER 2019-01-30 18:16 | Emergency (ER) | payer MEDICARE, MEDICAID, OTHER ==
[~2019-01-30] VITALS: Ht 170.2 cm; Wt 85.5 kg
[~2019-01-30 18:16] MED LIST changes: +KEFL500C17 PO
[2019-01-30 18:26] VITALS: BP 157/70
[2019-01-30] MEDS ORDERED: CLOP75TA2 (18:32)
[2019-01-30 19:53] LABS: BASO # 0.1 10^3/uL (0.0-0.2); BASO % 1.1 % (0.0-1.0); EOS # 0.2 10^3/uL (0.0-0.5); EOS % 2.4 % (0.0-3.0); HEMATOCRIT 38.7 % (42.0-52.0); HEMOGLOBIN 13.1 g/dl (13.5-17.5); LYMPH # 1.5 10^3/uL (1.5-5.0); LYMPH % 15.7 % (24.0-44.0); MEAN CORPUSCULAR HEMOGLOBIN 30.7 pg (27.0-33.0); MEAN CORPUSCULAR HGB CONC 33.9 g/dl (32.0-36.5); MEAN CORPUSCULAR VOLUME 90.6 fl (80.0-96.0); MONO # 0.8 10^3/uL (0.0-0.8); MONO % 8.2 % (0.0-5.0); NEUTROPHILS # 6.9 10^3/uL (1.5-8.5); NEUTROPHILS % 72.3 % (36.0-66.0); PLATELET COUNT, AUTOMATED 242 10^3/uL (150-450); RED BLOOD COUNT 4.27 10^6/uL (4.30-6.10); WHITE BLOOD COUNT 9.5 10^3/uL (4.0-10.0)
[2019-01-30 20:18] LABS: CALCIUM LEVEL 8.7 MG/DL (8.8-10.2); CREATININE FOR GFR 1.37 MG/DL (0.70-1.30); POTASSIUM SERUM 5.9 MEQ/L (3.5-5.1)
[2019-01-30] MEDS ORDERED: SOD POLYSTYRENE SULFONATE SUSP 15 GM/60 ML UD PO ONE (22:00)
--- NOTE | 2019-01-31 08:12 | ECGEPIP ---
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
== END 2019-01-30 22:33 | disposition home or self-care (01) ==
LOC: EDBD 18:16 → M ED 18:16
DX: E87.5 Hyperkalemia (principal); Z96.0 Presence of urogenital implants; Z95.0 Presence of cardiac pacemaker; R94.31 Abnormal electrocardiogram [ECG] [EKG]; Z87.448 Personal history of other diseases of urinary system; I25.10 Atherosclerotic heart disease of native coronary artery without angina pectoris; E11.9 Type 2 diabetes mellitus without complications; I10 Essential (primary) hypertension; N40.0 Benign prostatic hyperplasia without lower urinary tract symptoms; Z95.5 Presence of coronary angioplasty implant and graft; Z79.84 Long term (current) use of oral hypoglycemic drugs; Z79.899 Other long term (current) drug therapy

== ENCOUNTER → 2019-01-31 | Outpatient (REF) | payer MEDICARE, MEDICAID, OTHER ==
[~2019-01-31] MED LIST changes: +CLOP75TA2
== END ==
LOC: M SMT 19:04
PROVIDERS: ATTEND Internal Medicine
DX: N28.89 Other specified disorders of kidney and ureter (principal)

== ENCOUNTER → 2019-03-01 | Outpatient (REF) | payer MEDICARE, MEDICAID, OTHER ==
[2019-03-01 18:13] LABS: APPEARANCE, URINE MANUAL HAZY (CLEAR)
[2019-03-01 18:14] LABS: COLOR, URINE MANUAL LT YELLOW (YELLOW)
[2019-03-01 18:15] LABS: PROTEIN, URINE MANUAL TRACE mg/dL (NEGATIVE)
[2019-03-01 18:16] LABS: BILIRUBIN, URINE MANUAL NEGATIVE (NEGATIVE); BLOOD URINE MANUAL POSITIVE (NEGATIVE); GLUCOSE, URINE (UA) MANUAL NEGATIVE (NEGATIVE); KETONE, URINE MANUAL NEGATIVE (NEGATIVE); LEUKOCYTE ESTERASE, URINE MAN POSITIVE (NEGATIVE); NITRITE, URINE MANUAL POSITIVE (NEGATIVE); UROBILINOGEN, URINE MANUAL NORMAL (NORMAL)
[2019-03-01 18:17] LABS: BACTERIA, URINE MOD AMOUNT; HYALINE CAST, URINE NONE SEEN /lpf (0-1); SQUAMOUS EPITHELIAL CELL URINE SMALL AMOUNT /hpf (SMALL AMT)
== END ==
LOC: M SMT 17:11
PROVIDERS: ATTEND Nurse Practitioner Women's Health
DX: R30.0 Dysuria (principal)

== ENCOUNTER 2019-08-28 10:57 | Observation (INO) | payer MEDICARE, MEDICAID ==
[2019-08-28] MEDS ORDERED: NS 1,000 ML IV SCH ×2 (11:15→12:15)
[2019-08-28] MEDS ORDERED: METF-838 PO (12:52)
[2019-08-28] MEDS ORDERED: MED REC COMMENT (12:54)
[2019-08-28 13:12] LABS: BASO # 0.1 10^3/uL (0.0-0.2); BASO % 0.7 % (0.0-1.0); EOS # 0.1 10^3/uL (0.0-0.5); EOS % 0.6 % (0.0-3.0); HEMATOCRIT 43.7 % (42.0-52.0); HEMOGLOBIN 14.2 g/dl (13.5-17.5); LYMPH # 0.9 10^3/uL (1.5-5.0); LYMPH % 8.2 % (24.0-44.0); MEAN CORPUSCULAR HEMOGLOBIN 29.3 pg (27.0-33.0); MEAN CORPUSCULAR HGB CONC 32.5 g/dl (32.0-36.5); MEAN CORPUSCULAR VOLUME 90.1 fl (80.0-96.0); MONO # 0.5 10^3/uL (0.0-0.8); MONO % 5.1 % (0.0-5.0); NEUTROPHILS # 8.9 10^3/uL (1.5-8.5); PLATELET COUNT, AUTOMATED 213 10^3/uL (150-450); RED BLOOD COUNT 4.85 10^6/uL (4.30-6.10); WHITE BLOOD COUNT 10.5 10^3/uL (4.0-10.0)
[2019-08-28 13:46] LABS: BILIRUBIN,DIRECT 0.3 MG/DL (0.0-0.2); BILIRUBIN,TOTAL 0.7 MG/DL (0.2-1.0); TOTAL PROTEIN 7.3 GM/DL (6.4-8.2)
[2019-08-28] MEDS ORDERED: DEXTROSE 50% 50 ML SYRINGE IV PRN (16:00)
[2019-08-28] MEDS ORDERED: ACETAMINOPHEN TAB 650MG DOSE (2X325MG) PO PRN (16:00)
[2019-08-28] MEDS ORDERED: GLUCAGON INJ 1MG VIAL SC PRN (16:00)
[2019-08-28] MEDS ORDERED: GLUCOSE 4GM CHEW TABLET PO PRN (16:00)
[2019-08-28] MEDS ORDERED: HumuLIN R (REGULAR) INSULIN (NovoLIN R) **100U/ML** PER UNIT IV STA (16:02)
[2019-08-28] MEDS ORDERED: DEXTROSE 50% 50 ML SYRINGE IV STA (16:02)
--- NOTE | 2019-08-28 16:11 | HPEPDOC ---
General Date of Admission 08/28/19 Date of Service: Aug 28, 2019 Chief Complaint The patient is a 69-year-old male admitted with a reason for visit of Diarrhea. Source: Patient Timing/Duration: 24 hours Severity: Mild History of Present Illness Patient is 69 years old male with past medical history of coronary artery diseases with stents placement, hypertension, hyperlipidemia presented to the hospital with multiple episodes of diarrhea. Patient stated that for past 24 hours he developed multiple episodes of explosive diarrhea. Patient denied fever, chills, nausea, vomiting. He states that he didn't eat any unusual food. Patient denied any blood or black stool No family members have the same symptoms. In emergency room patient was found to have leukocytes count of 10.2, creatinine 2.4, potassium 5.4. Home Medications Scheduled Atorvastatin Calcium (Atorvastatin Calcium) 40 Mg Tab, 40 MG PO DAILY, (Reported) Lisinopril (Lisinopril) 20 Mg Tab, 20 MG PO DAILY, (Reported) Metformin HCl (Metformin HCl ER) 500 Mg Tab.er.24h, 1,000 MG PO BID, (Reported) Spironolactone (Spironolactone) 25 Mg Tab, 25 MG PO DAILY, (Reported) Miscellaneous Medications [Med Rec Comment] , (Reported) LIST OBTAINED FROM PHARMACY, WILL CONTACT BROTHER WHEN AVAILABLE TO CONFIRM Allergies Coded Allergies: No Known Allergies (Unverified , 04/05/18) Past Medical History Medical History BPH DM Coronary artery diseases with stent placement HIGH BP HIGH CHOLESTEROL URINARY RETENTION Surgical History STENTS IN HEART PACEMAKER PLACEMENT 02/13/2018 Family History I reviewed family history and found not pertinent Social History * Smoker: Denies Alcohol: Denies Drugs: denies A-FIB/CHADSVASC A-FIB History Current/History of A-Fib/PAF?: No Current PO Anticoag Therapy: No Review of Systems Constitutional: Denies: Chills, Fever Eyes: Denies: Pain, Vision change ENT: Denies: Head Aches Skin: Denies: Rash, Lesions Pulmonary: Denies: Dyspnea Cardiovascular: Denies: Chest Pain Gastrointestinal: Reports: Diarrhea Genitourinary: Reports: Dysuria Hematologic: Denies: Bruising, Bleeding Excessively Endocrine: Denies: Polydipsia Musculoskeletal: Denies: Neck Pain Neurological: Denies: Weakness Psych: Reports: Mood Normal Physical Examination General Exam: Positive: Alert, Cooperative, Other (mild cognitive impairment) Eye Exam: Positive: PERRLA ENT Exam: Positive: Atraumatic Neck Exam: Negative: Supple, JVD Heart Exam: Positive: Rate Normal Telemetry: Positive: No significant arrhythmia Abdomen Exam: Positive: BS Hyperactive, Soft; Negative: Normal bowel sounds, Tenderness Extremity Exam: Negative: Clubbing Skin Exam: Positive: Nl turgor and temperature Neuro Exam: Positive: Normal Gait, Strength at 5/5 X4 ext, Cranial Nerves 3-12 NL Psych Exam: Positive: Mental status NL, Mood NL Vital Signs Vital Signs Date Time Temp Pulse Resp B/P (MAP) Pulse Ox O2 Delivery O2 Flow Rate FiO2 08/28/19 15:30 60 136/71 (92) 08/28/19 14:00 96 08/28/19 12:15 16 Room Air 08/28/19 11:17 96.7 Laboratory Data Labs 24H Laboratory Tests 2 08/28/19 11:54: POC Glucose (Misc Panel) 90, POC Sodium (Misc Panel) 140, POC Potassium (Misc Panel) 5.4H, POC Chloride (Misc Panel) 110H, POC Total CO2 (Misc Panel) 19.0L, POC Blood Urea Nitrogen (Misc Panel 52H, POC Ionized Calcium (Misc Panel) 4.6, POC Creatinine (Misc Panel) 2.4H, POC Hematocrit (Misc Panel) 47.0 08/28/19 12:49: Immature Granulocyte % (Auto) 0.4, Neutrophils (%) (Auto) 85.0H, Lymphocytes (%) (Auto) 8.2L, Monocytes (%) (Auto) 5.1H, Eosinophils (%) (Auto) 0.6, Basophils (%) (Auto) 0.7, Neutrophils # (Auto) 8.9H, Lymphocytes # (Auto) 0.9L, Monocytes # (Auto) 0.5, Eosinophils # (Auto) 0.1, Basophils # (Auto) 0.1, Nucleated Red Blood Cells % (auto) 0.0, Lactic Acid Level 1.5, Total Bilirubin 0.7, Direct Bilirubin 0.3H, Aspartate Amino Transf (AST/SGOT) 32, Alanine Aminotransferase (ALT/SGPT) 24, Alkaline Phosphatase 86, Total Creatine Kinase 186, Total Protein 7.3, Albumin 4.0, Albumin/Globulin Ratio 1.2 CBC/BMP Laboratory Tests 08/28/19 12:49 Microbiology Microbiology 08/28/19 Blood Culture, Received Pending 08/28/19 Blood Culture, Received Pending Assessment/Plan Patient is 69 years old male with past medical history of coronary artery diseases with stents placement, hypertension, hyperlipidemia [facility] of [facility]. Patient stated that for past 24 hours he developed multiple episodes of explosive diarrhea. Patient denied fever, chills, nausea, vomiting. He states that he didn't eat any unusual food. Patient denied any blood or black stool No family members have the same symptoms. In emergency room patient was found to have leukocytes count of 10.2, creatinine 2.4, potassium 5.4. Problems (1) Diarrhea Status: Acute Problem Text: Most likely viral etiology Patient denies any antibiotic therapy recently GI panel including C diff IV fluid (2) Coronary artery disease Problem Text: Continue home cardioprotective medication Patient will benefit from beta porsha and aspirin (3) BERTRAND (acute kidney injury) Status: Acute Problem Text: Prerenal most likely secondary to dehydration due to diarrhea IV fluid Continue to monitor (4) Hyperkalemia Status: Acute Problem Text: EKG did not show any acute ischemic changes I will give D50, insulin 10 units IV Will recheck BMP in 4 hours Lisinopril and spironolactone on hold till tomorrow (5) Diabetes mellitus Problem Text: Diabetes diet insulin sliding scale Plan / VTE VTE Prophylaxis Ordered?: Yes PIPO GRIJALVA DO Aug 28, 2019 16:11
[2019-08-28] MEDS ORDERED: ASPIRIN 81 MG CHEW TABLET PO ONE (16:15)
[2019-08-28] MEDS ORDERED: CALCIUM CHLORIDE 10% 1 GM in D5W 100 ML IV ONE (16:15)
[2019-08-28] MEDS: HumaLOG INSULIN (NovoLOG) PER UNIT SC SCH ×2 (17:30→20:42)
[2019-08-28 18:00] VITALS: BP 160/74
[2019-08-28] MEDS: NS 1,000 ML IV SCH (18:57)
[2019-08-28 20:00] VITALS: BP 152/78
[2019-08-28] MEDS: METOPROLOL TART 12.5 MG PER 1/2 TAB PO SCH (20:41)
[2019-08-28] MEDS: HEPARIN SOD (PORCINE) 5000UNITS/ML VIAL (J1644 PER 1000UNITS) SC SCH (20:42)
--- NOTE | 2019-08-28 21:01 | ECGEPIP ---
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
[2019-08-29] MEDS: NS 1,000 ML IV SCH ×2 (03:31→12:27)
[2019-08-29 04:00] VITALS: BP 153/78
[2019-08-29 05:42] LABS: HEMATOCRIT 40.2 % (42.0-52.0); MEAN CORPUSCULAR HEMOGLOBIN 29.1 pg (27.0-33.0); MEAN CORPUSCULAR HGB CONC 32.3 g/dl (32.0-36.5); MEAN CORPUSCULAR VOLUME 90.1 fl (80.0-96.0); PLATELET COUNT, AUTOMATED 184 10^3/uL (150-450); RED BLOOD COUNT 4.46 10^6/uL (4.30-6.10); WHITE BLOOD COUNT 7.7 10^3/uL (4.0-10.0)
[2019-08-29 06:04] LABS: ALBUMIN 3.4 GM/DL (3.2-5.2); BILIRUBIN,TOTAL 0.5 MG/DL (0.2-1.0); CALCIUM LEVEL 8.3 MG/DL (8.8-10.2); CREATININE FOR GFR 1.84 MG/DL (0.70-1.30); MAGNESIUM LEVEL 1.7 MG/DL (1.8-2.4); POTASSIUM SERUM 4.8 MEQ/L (3.5-5.1); TOTAL PROTEIN 6.6 GM/DL (6.4-8.2)
[2019-08-29] MEDS: HumaLOG INSULIN (NovoLOG) PER UNIT SC SCH ×4 (07:30→21:00)
[2019-08-29 08:00] VITALS: BP 155/67
[2019-08-29] MEDS: SPIRONOLACTONE 25 MG TAB PO SCH (09:04)
[2019-08-29] MEDS: HEPARIN SOD (PORCINE) 5000UNITS/ML VIAL (J1644 PER 1000UNITS) SC SCH ×2 (09:04→21:18)
[2019-08-29] MEDS: METOPROLOL TART 12.5 MG PER 1/2 TAB PO SCH (09:05)
[2019-08-29] MEDS: lisinopriL 20 MG TAB PO SCH (09:05)
[2019-08-29] MEDS: ATORVASTATIN 20 MG TAB PO SCH (09:05)
[2019-08-29 12:00] VITALS: BP 123/59
--- NOTE | 2019-08-29 12:09 | IPNPDOC ---
Text Note Date of Service The patient was seen on 08/29/19. NOTE Patient was seen and examined this morning. States that he is doing much better. Diarrhea has improved and he has been able to tolerate the diet PHYSICAL EXAMINATION: General: The patient is awake, alert, oriented x3, sitting up in the bed in no apparent distress. Head and Neck Exam: Extraocular muscles intact. Pupils equally round and reactive to light. Mucous membranes are moist. Neck is supple. There is no jugular venous distention (JVD). Cardiovascular: S1 and S2, regular rate. Trace edema of the bilateral lower extremities. Respiratory: Normal respiratory effort. No wheezing, no rhonchi, no rales Abdomen: Soft. Positive bowel sounds. Nontender. No organomegaly. Musculoskeletal: Clubbing of the fingernails, no cyanosis was noted. Central Nervous System (RADIOLOGIC TECHNOLOGY TEACHER): No focal deficit. Power is 5/5 in all extremities. Assessment and plan Patient is 69 years old male with past medical history of coronary artery diseases with stents placement, hypertension, hyperlipidemia presented to the hospital with multiple episodes of diarrhea. Patient stated that for past 24 hours he developed multiple episodes of explosive diarrhea, which have been improving now patient denied fever, chills, nausea, vomiting. Problems (1) Diarrhea: Improved, most likely viral. We will DC IV fluids and see how he tolerates a diet and will advance as tolerated (2) Coronary artery disease status post PCI: We will continue his home medic ations and to evaluate for discharge (3) BERTRAND (acute kidney injury): Baseline of around 1.1The patient had a creatinine of 2.4 and is down trending to 1.8. The patient's AYDEE inhibitor is on hold. Will reevaluate and restart once her kidney function stabilizes. The patient also is on Aldactone, which is on hold. He has been tolerating the diet well and IV fluid to be discontinued. (4) Hyperkalemia: Resolved. Likely secondary to prerenal causes, and Aldactone. IV fluids were given, which are discontinued now undergone still on hold. (5) Diabetes mellitus: Continue sliding scale insulin. Likely discharge in the next 24-48 hours once his renal function stabilizes. VS,Fishbone, I+O VS, Fishbone, I+O Laboratory Tests 08/28/19 12:49 08/29/19 05:20 Vital Signs Date Time Temp Pulse Resp B/P (MAP) Pulse Ox O2 Delivery O2 Flow Rate FiO2 08/29/19 09:05 62 155/67 08/29/19 08:00 97.0 18 100 Room Air I&O- Last 24 Hours up to 6 AM 08/29/19 06:00 Intake Total 1110 ml Output Total 850 ml Balance 260 ml BRIAN BAEZ MD Aug 29, 2019 12:09
[2019-08-29 19:49] VITALS: BP 121/67
[2019-08-30] MEDS: NS 1,000 ML IV SCH ×2 (01:07→10:56)
[2019-08-30 04:00] VITALS: BP 148/70
[2019-08-30 07:13] LABS: BASO # 0.1 10^3/uL (0.0-0.2); BASO % 0.8 % (0.0-1.0); EOS # 0.3 10^3/uL (0.0-0.5); EOS % 3.8 % (0.0-3.0); HEMATOCRIT 37.7 % (42.0-52.0); HEMOGLOBIN 12.1 g/dl (13.5-17.5); LYMPH # 1.2 10^3/uL (1.5-5.0); LYMPH % 18.4 % (24.0-44.0); MEAN CORPUSCULAR HEMOGLOBIN 29.2 pg (27.0-33.0); MEAN CORPUSCULAR HGB CONC 32.1 g/dl (32.0-36.5); MEAN CORPUSCULAR VOLUME 91.1 fl (80.0-96.0); MONO # 0.5 10^3/uL (0.0-0.8); MONO % 8.3 % (0.0-5.0); NEUTROPHILS # 4.5 10^3/uL (1.5-8.5); NEUTROPHILS % 68.5 % (36.0-66.0); PLATELET COUNT, AUTOMATED 181 10^3/uL (150-450); RED BLOOD COUNT 4.14 10^6/uL (4.30-6.10); WHITE BLOOD COUNT 6.5 10^3/uL (4.0-10.0)
[2019-08-30 07:29] LABS: CREATININE FOR GFR 1.65 MG/DL (0.70-1.30); GLOMERULAR FILTRATION RATE 44.3 (>49); MAGNESIUM LEVEL 1.5 MG/DL (1.8-2.4); POTASSIUM SERUM 4.7 MEQ/L (3.5-5.1)
[2019-08-30] MEDS: HumaLOG INSULIN (NovoLOG) PER UNIT SC SCH ×4 (07:30→21:00)
[2019-08-30 08:00] VITALS: BP 138/74
[2019-08-30] MEDS: ATORVASTATIN 20 MG TAB PO SCH (08:14)
[2019-08-30] MEDS: lisinopriL 20 MG TAB PO SCH (08:14)
[2019-08-30] MEDS: METOPROLOL TART 12.5 MG PER 1/2 TAB PO SCH (08:14)
[2019-08-30] MEDS: SPIRONOLACTONE 25 MG TAB PO SCH (08:15)
[2019-08-30] MEDS: HEPARIN SOD (PORCINE) 5000UNITS/ML VIAL (J1644 PER 1000UNITS) SC SCH ×2 (08:15→21:18)
[2019-08-30] MEDS ORDERED: NORV5TAB PO (10:27)
--- NOTE | 2019-08-30 10:31 | DS.PDOC ---
Discharge Summary General Date of Admission Aug 28, 2019 at 10:58 Date of Discharge 08/30/19 Discharge Summary Final diagnosis Diarrhea Dehydration AK I History of present illness and Hospital course Patient is 69 years old male with past medical history of coronary artery diseases with stents placement, hypertension, hyperlipidemia presented to the hospital with multiple episodes of diarrhea. Patient stated that for past 24 hours he developed multiple episodes of explosive diarrhea, which have been i mproving now patient denied fever, chills, nausea, vomiting. His Diarrhea Improved, most likely viral, he tolerates a diet and we advanced diet soft diet. She also tolerated. He also had BERTRAND (acute kidney injury): Baseline of around 1.1The patient had a creatinine of 2.4 and is down trending to 1.6. The patient's AYDEE inhibitor, and spironolactone , which was kept on hold. I evaluated his medications and in my opinion, there is no need of continuing Aldactone at this time. For his hypertension. He'll be continued on his lisinopril and Norvasc 5 mg has been added. His 2-D echo which was done in 2018 has been reviewed which did not show any indications for him to be on Aldactone. Also, she has had a PCI in the past but is not on any antiplatelet medications and for that reason, I have started him on baby aspirin. His kidney function is trending down and he has been advised to follow with PCP in 1 week to follow with his renal function and is medically optimized for discharge. His bowel m ovement has been formed now and maximal benefit from this inpatient stay has been obtained PHYSICAL EXAMINATION: General: The patient is awake, alert, oriented x3, sitting up in the bed in no apparent distress. Head and Neck Exam: Extraocular muscles intact. Pupils equally round and reactive to light. Mucous membranes are moist. Neck is supple. There is no jugular venous distention (JVD). Cardiovascular: S1 and S2, regular rate. Trace edema of the bilateral lower extremities. Respiratory: Normal respiratory effort. No wheezing, no rhonchi, no rales Abdomen: Soft. Positive bowel sounds. Nontender. No organomegaly. Musculoskeletal: Clubbing of the fingernails, no cyanosis was noted. Central Nervous System (CLINICAL SUPPORT NURSE): No focal deficit. Power is 5/5 in all extremities. Medications. As per discharge reconciliation medication list. Aldactone has been discontinued and aspirin has been added along with Norvasc 5 mg Activity as tolerated Diet. 2 g sodium diet Follow-up appointments. PCP in 1 week Condition on discharge. Patient is medically optimized for discharge Discharge disposition: Home Total time spent on this discharge including coordination of care, review of sam rt documentation and actual contact is around 35 minutes Vital Signs/I&Os Vital Signs Date Time Temp Pulse Resp B/P (MAP) Pulse Ox O2 Delivery O2 Flow Rate FiO2 08/30/19 08:14 61 148/70 08/30/19 08:00 96.8 17 98 Room Air I&O- Last 24 Hours up to 6 AM 08/30/19 06:00 Intake Total 3410 ml Output Total 1075 ml Balance 2335 ml Laboratory Data Labs 24H Laboratory Tests 2 08/29/19 11:59: Bedside Glucose (Misc Panel) 115 08/29/19 16:45: Bedside Glucose (Misc Panel) 87 08/29/19 20:59: Bedside Glucose (Misc Panel) 170H 08/30/19 07:02: Immature Granulocyte % (Auto) 0.2, Neutrophils (%) (Auto) 68.5H, Lymphocytes (%) (Auto) 18.4L, Monocytes (%) (Auto) 8.3H, Eosinophils (%) (Auto) 3.8H, Basophils (%) (Auto) 0.8, Neutrophils # (Auto) 4.5, Lymphocytes # (Auto) 1.2L, Monocytes # (Auto) 0.5, Eosinophils # (Auto) 0.3, Basophils # (Auto) 0.1, Nucleated Red Blood Cells % (auto) 0.0, Anion Gap 7L, Glomerular Filtration Rate 44.3L, Calcium Level 8.0L, Magnesium Level 1.5L CBC/BMP Laboratory Tests 08/30/19 07:02 FSBS Laboratory Tests Test 08/29/19 11:59 08/29/19 16:45 08/29/19 20:59 Range/Units Bedside Glucose (Misc Panel) 115 87 170 80-115 MG/DL Microbiology Microbiology 08/28/19 Blood Culture - Preliminary, Resulted No growth after 24 hours . All specim... 08/28/19 Blood Culture - Preliminary, Resulted No growth after 24 hours . All specim... Discharge Medications Scheduled Amlodipine Besylate (Norvasc) 5 Mg Tablet, 1 TAB PO DAILY Atorvastatin Calcium (Atorvastatin Calcium) 40 Mg Tab, 40 MG PO DAILY, (Reported) Lisinopril (Lisinopril) 20 Mg Tab, 20 MG PO DAILY, (Reported) Metformin HCl (Metformin HCl ER) 500 Mg Tab.er.24h, 1,000 MG PO BID, (Reported) Miscellaneous Medications [Med Rec Comment] , (Reported) LIST OBTAINED FROM PHARMACY, WILL CONTACT BROTHER WHEN AVAILABLE TO CONFIRM Allergies Coded Allergies: No Known Allergies (Unverified , 04/05/18) BRIAN BAEZ MD Aug 30, 2019 10:31
[2019-08-30] MEDS ORDERED: ASPI81TA85 PO (10:32)
[2019-08-30 12:00] VITALS: BP 182/78
[2019-08-30 14:00] VITALS: BP 140/72
[2019-08-30 20:00] VITALS: BP 164/66
[2019-08-31] VITALS: BP 162/68
[2019-08-31] MEDS: NS 1,000 ML IV SCH (00:34)
[2019-08-31 04:00] VITALS: BP 154/60
[2019-08-31] MEDS: HumaLOG INSULIN (NovoLOG) PER UNIT SC SCH ×3 (07:30→17:48)
[2019-08-31] MEDS: HEPARIN SOD (PORCINE) 5000UNITS/ML VIAL (J1644 PER 1000UNITS) SC SCH (08:36)
[2019-08-31] MEDS: lisinopriL 20 MG TAB PO SCH (08:36)
[2019-08-31 08:37] VITALS: BP 146/60
[2019-08-31] MEDS: SPIRONOLACTONE 25 MG TAB PO SCH (08:37)
[2019-08-31] MEDS: METOPROLOL TART 12.5 MG PER 1/2 TAB PO SCH (08:37)
[2019-08-31] MEDS: ATORVASTATIN 20 MG TAB PO SCH (08:37)
[2019-08-31 09:36] LABS: CALCIUM LEVEL 7.8 MG/DL (8.8-10.2); CREATININE FOR GFR 1.54 MG/DL (0.70-1.30); GLOMERULAR FILTRATION RATE 47.9 (>49); MAGNESIUM LEVEL 1.4 MG/DL (1.8-2.4); POTASSIUM SERUM 4.6 MEQ/L (3.5-5.1)
[2019-08-31] MEDS: MAG SULF 1GM/100ML (MAG RUN) 1 GM in IV 1 EA IV SCH ×2 (11:27→12:31)
[2019-08-31 12:00] VITALS: BP 145/66
[2019-08-31] MEDS ORDERED: RA N1TAB PO (14:29)
--- NOTE | 2019-08-31 14:34 | IPNPDOC ---
Date Seen The patient was seen on 08/31/19. Progress Note SUBJECTIVE: Patient was discharged yesterday but was not able to clear pending PT clearance. He was seen today and reported feeling well without any complaints. Mg noted to be low at 1.4 and was given 2 magnesium IV runs now at 1.9. He is started on PO magnesium and to be discharged home today. Cleared with PT. OBJECTIVE PHYSICAL EXAMINATION: VITAL SIGNS: Please see below. General: No acute distress, Alert, stutters Eyes: Normal sclera, EOMI HENT: Atraumatic Cardiovascular: Normal rate Pulmonary: Clear to auscultation b/l, no wheezing GI: Soft, nontender, nondistended Skin: Warm and dry Neuro: CN grossly intact. No focal deficits. Psych: oriented x 3 LABORATORY DATA, IMAGING STUDIES, MICROBIOLOGY: Please see below. DVT prophylaxis ordered?: HSQ ASSESSMENT AND PLAN: 1. Hypomagnesemia - Repleted with 2g IV magnesium. Started on PO and will need to follow up with PCP. 2. Diarrhea - Most likely viral, improved. 3. CAD s/p PCI - No active problems. Home meds resumed. 4. BERTRAND - s/p IVF support. Improving. 5. DM - ISS To be discharged home today DISPOSITION: . VS, I&O, 24H, [facility] Vital Signs/I&O Vital Signs Date Time Temp Pulse Resp B/P (MAP) Pulse Ox O2 Delivery O2 Flow Rate FiO2 08/31/19 12:00 96.9 60 18 145/66 (92) 100 Room Air I&O- Last 24 Hours up to 6 AM 08/31/19 06:00 Intake Total 480 ml Output Total 1600 ml Balance -1120 ml Laboratory Data 24H LABS Laboratory Tests 2 08/30/19 17:17: Bedside Glucose (Misc Panel) 108 08/30/19 20:37: Bedside Glucose (Misc Panel) 148H 08/31/19 08:24: Bedside Glucose (Misc Panel) 76L 08/31/19 08:45: Anion Gap 12, Glomerular Filtration Rate 47.9L, Calcium Level 7.8L, Magnesium Level 1.4L 08/31/19 11:31: Bedside Glucose (Misc Panel) 136H 08/31/19 13:46: Magnesium Level 1.9 CBC/BMP Laboratory Tests 08/31/19 08:45 Microbiology Microbiology 08/28/19 Blood Culture - Preliminary, Resulted No Growth after 72 hours. All specime... 08/28/19 Blood Culture - Preliminary, Resulted No Growth after 72 hours. All specime... NESTOR LOERA MD Aug 31, 2019 14:34
== END 2019-08-31 18:58 | disposition home or self-care (01) ==
LOC: EDBD 10:57 → M ED 10:57 → M ED INP 10:58 → ENRESERV 16:12 → M PCU 17:45
PROVIDERS: ADMIT Internal Medicine; ATTEND Internal Medicine
DX: R19.7 Diarrhea, unspecified (principal); E86.0 Dehydration; N17.9 Acute kidney failure, unspecified; E83.42 Hypomagnesemia; E87.5 Hyperkalemia; E11.9 Type 2 diabetes mellitus without complications; I11.9 Hypertensive heart disease without heart failure; I25.10 Atherosclerotic heart disease of native coronary artery without angina pectoris; Z95.5 Presence of coronary angioplasty implant and graft; E78.5 Hyperlipidemia, unspecified; N40.1 Benign prostatic hyperplasia with lower urinary tract symptoms; R33.9 Retention of urine, unspecified; Z96.0 Presence of urogenital implants; Z95.0 Presence of cardiac pacemaker; Z79.899 Other long term (current) drug therapy; Z79.84 Long term (current) use of oral hypoglycemic drugs; Z79.82 Long term (current) use of aspirin
CPT/HCPCS: 36415; 80047; 80048; 80053; 80076; 82550; 83605; 83735; 85025; 85027; 87040; 93005; 96361; 96365; 96368; 96372; 97116; 97161; 97166; 97530; 99285; G0378; J1644; J3475

== ENCOUNTER 2020-05-20 15:10 | Inpatient (IN) | payer MEDICARE, MEDICAID ==
[~2020-05-20] VITALS: Ht 170.2 cm; Wt 85.0 kg
[~2020-05-20 15:10] MED LIST changes: -AMLO10TA5 PO; +AMLO1TAB25 PO; -ASPI81TA85 PO; +ASPI81TA86 PO; -LISI-538 PO; +LISI20TA33 PO; +MED REC COMMENT; +METF-838 PO; +NORV5TAB PO; +RA N1TAB PO
[2020-05-20 15:48] LABS: BASO % 0.7 % (0.0-1.0); EOS # 0.1 10^3/uL (0.0-0.5); EOS % 1.4 % (0.0-3.0); HEMATOCRIT 37.2 % (42.0-52.0); HEMOGLOBIN 11.8 g/dl (13.5-17.5); LYMPH # 0.9 10^3/uL (1.5-5.0); LYMPH % 15.5 % (24.0-44.0); MEAN CORPUSCULAR HEMOGLOBIN 30.1 pg (27.0-33.0); MEAN CORPUSCULAR HGB CONC 31.7 g/dl (32.0-36.5); MEAN CORPUSCULAR VOLUME 94.9 fl (80.0-96.0); MONO # 0.3 10^3/uL (0.0-0.8); NEUTROPHILS # 4.2 10^3/uL (1.5-8.5); PLATELET COUNT, AUTOMATED 187 10^3/uL (150-450); RED BLOOD COUNT 3.92 10^6/uL (4.30-6.10); WHITE BLOOD COUNT 5.5 10^3/uL (4.0-10.0)
--- NOTE | 2020-05-20 15:59 | REP ---
INDICATION: Altered Mental Status. COMPARISON: None. TECHNIQUE: Axial CT images with multiplanar reformations. FINDINGS: No acute bleed or acute large vessel territorial infarct. Ventricles, cisterns and sulci within normal limits. No mass effect or midline shift. No abnormal fluid collections. Scattered periventricular and deep white matter hypodensities are consistent with sequelae of chronic small vessel ischemic disease. Paranasal sinuses and mastoid air cells are clear. IMPRESSION: No acute findings. Age-related volume loss and white matter changes. <Electronically signed by Randy Bullard > 05/20/20 [id number]
[2020-05-20 16:17] LABS: OSMOLALITY SERUM 304 MOSM/KG (280-301)
[2020-05-20 16:18] LABS: ALBUMIN 3.5 GM/DL (3.2-5.2); ALT/SGPT 36 U/L (12-78); BILIRUBIN,DIRECT 0.2 MG/DL (0.0-0.2); BILIRUBIN,TOTAL 0.5 MG/DL (0.2-1.0); BLOOD UREA NITROGEN 31 MG/DL (7-18); CALCIUM LEVEL 8.9 MG/DL (8.8-10.2); CARBON DIOXIDE LEVEL 28 MEQ/L (21-32); CHLORIDE LEVEL 109 MEQ/L (98-107); CK-MB VALUE MASS 7.4 NG/ML (<3.6); CPK CREATINE PHOSPHOKINASE 77 U/L (39-308); CREATININE FOR GFR 1.33 MG/DL (0.70-1.30); GLOMERULAR FILTRATION RATE 56.8 (>49); GLUCOSE, FASTING 78 MG/DL (70-100); MB/CK RELATIVE INDEX 9.61 (< OR =4); POTASSIUM SERUM 5.2 MEQ/L (3.5-5.1); SODIUM LEVEL 144 MEQ/L (136-145); TOTAL PROTEIN 6.7 GM/DL (6.4-8.2); TROPONIN I < 0.02 NG/ML (< 0.10)
[2020-05-20 17:10] LABS: RSV AMPLIFICATION NEGATIVE (NEGATIVE)
--- NOTE | 2020-05-20 18:03 | ECGEPIP ---
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
[2020-05-20] MEDS ORDERED: AMLO1TAB24 PO (18:35)
[2020-05-20] MEDS ORDERED: ASPI81TA27 PO (18:35)
[2020-05-20] MEDS ORDERED: cefTRIAXone SOD 1 GM in D5W MINI-BAG PLUS 50 ML IV ONE (19:30)
[2020-05-20] MEDS: HumaLOG INSULIN (NovoLOG) PER UNIT SC SCH (21:00)
--- NOTE | 2020-05-20 21:20 | REPVR ---
PROCEDURE INFORMATION: Exam: XR Chest Exam date and time: 05/20/2020 8:30 PM Age: 69 years old Clinical indication: Other: AMS TECHNIQUE: Imaging protocol: XR of the chest Views: 1 view. COMPARISON: CR Chest, 2 view PA, Lat 10/18/2018 12:32 PM FINDINGS: Tubes, catheters and devices: Pacemaker in expected location. Lungs: Possible retrocardiac opacity in the left lung base. Lungs are otherwise clear. Pleural spaces: Unremarkable. No pleural effusion. No pneumothorax. Heart/Mediastinum: Unremarkable. No cardiomegaly. Bones/joints: Skeletal degenerative changes are noted. IMPRESSION: Possible left basilar pneumonia. Electronically signed by: Donnie Hutton On 05/20/2020 21:20:46 PM
--- NOTE | 2020-05-20 21:29 | REPVR ---
PROCEDURE INFORMATION: Exam: CT Abdomen And Pelvis Without Contrast Exam date and time: 05/20/2020 7:50 PM Age: 69 years old Clinical indication: Condition or disease; Kidney or ureter condition; Other: UTI; Additional info: UTI, AMS, R/O stone TECHNIQUE: Imaging protocol: Computed tomography of the abdomen and pelvis without contrast. Radiation optimization: All CT scans at this facility use at least one of these dose optimization techniques: automated exposure control; mA and/or kV adjustment per patient size (includes targeted exams where dose is matched to clinical indication); or iterative reconstruction. COMPARISON: CT ABD PELVIS WITH CONTRAST 04/14/2017 8:32 PM FINDINGS: Lungs: 5 mm noncalcified nodule in the right lower lobe. Patchy airspace consolidation in the left lung base. Liver: Normal. No mass. Gallbladder and bile ducts: Normal. No calcified stones. No ductal dilation. Pancreas: Normal. No ductal dilation. Spleen: Normal. No splenomegaly. Adrenal glands: Normal. No mass. Kidneys and ureters: Multiple scattered cysts in both kidneys. Largest cyst in the upper pole of the right kidney is minimally increased in size. No urinary tract calculi or hydronephrosis. Stomach and bowel: Moderate amount of fecal material in the colon. Gaseous distention of the transverse colon. No bowel obstruction. Small bowel is unremarkable. Appendix: No evidence of appendicitis. Intraperitoneal space: Unremarkable. No free air. No significant fluid collection. Vasculature: Unremarkable. No abdominal aortic aneurysm. Lymph nodes: Unremarkable. No enlarged lymph nodes. Urinary bladder: Urinary bladder is decompressed by Perdomo catheter. Urinary bladder wall appears mildly thickened. Reproductive: Unremarkable as visualized. Bones/joints: There are advanced degenerative changes in the spine and pelvis. Soft tissues: Unremarkable. IMPRESSION: 1. Left lower lobe pneumonia. 2. 5 mm right lower lobe nodule is not in the field of view on the prior exam. For patients at low risk (minimal or absent history of smoking and of other known risk factors), no routine follow-up is indicated. For patients at high risk (history of smoking or of other known risk factors), consider optional CT Chest at 12 months. (Reference: Robert) 3. Multiple renal cysts. No urinary tract calculi or hydronephrosis. 4. Mild urinary bladder wall thickening may be due to cystitis or artifact related to decompression by the Perdomo catheter. 5. Mild constipation. COMMENTS: Consistent with the [employer] [place]'s Incidental Findings Committee white paper (J Am Jese Radiol 2018): Any incidental renal lesion less than 1 cm or classified as too small to characterize, or any incidental cystic renal lesion characterized as simple-appearing, is likely benign. No follow-up imaging is recommended for these lesions per consensus recommendations based on imaging criteria. REFERENCES: Robert Rosas, et al. Guidelines for Management of Incidental Pulmonary Nodules Detected on CT Images: From the Fleischner Society 2017. Radiology. 2017;284(1):228-243. Electronically signed by: Donnie Hutton On 05/20/2020 21:29:47 PM
[2020-05-20] MEDS ORDERED: DEXTROSE 50% 50 ML SYRINGE IV PRN (22:30)
[2020-05-20] MEDS ORDERED: GLUCAGON INJ 1MG VIAL SC PRN (22:30)
[2020-05-20] MEDS ORDERED: GLUCOSE 4GM CHEW TABLET PO PRN (22:30)
[2020-05-20] MEDS ORDERED: MAALOX 30 ML SUSP *UDC PO PRN (22:55)
[2020-05-20] MEDS ORDERED: SOD POLYSTYRENE SULFONATE SUSP 15 GM/60 ML UD PO ONE (22:55)
[2020-05-20] MEDS ORDERED: MOM 30ML SUSPENSION UDC PO PRN (22:55)
--- NOTE | 2020-05-20 23:05 | HPEPDOC ---
[facility] Medical History & Physical Date of Admission May 20, 2020 Date of Service: May 20, 2020 History and Physical CHIEF COMPLAINT: Feeling unwell HISTORY OF PRESENT ILLNESS: 69-year-old male history of coronary artery disease with stenting in 2018, hypertension, mfi-krqinbp-fcfypxkaa diabetes who comes to the hospital after his home health nurse noticed he appeared more confused. In the ED patient says he is not feeling well overall and not sure what it is. At baseline he is usually alert and oriented x3 currently is not oriented to time. On review of systems patient endorses that he does have some dysuria ongoing for about a week. He also tells me he's had a green productive sputum on and off but this is chronic and has been happening for years. He denies a fever or chills denies chest pain and denies shortness of breath denies abdominal pain denies lower extremity swelling. PAST MEDICAL/SURGICAL HISTORY: CAD with stenting 2018 Hypertension BPH Diabetes Pacemaker placements 2018 SOCIAL HISTORY: Denies alcohol use Denies tobacco use Denies illicit drug use Tells me he lives with his brother FAMILY HISTORY: Reviewed and none contributory to this admission ALLERGIES: Please see below. REVIEW OF SYSTEMS: 10 point review of systems complete all negative otherwise stated in HPI HOME MEDICATIONS: Please see below. PHYSICAL EXAMINATION: Constitutional: Awake, in no apparent distress, appears somewhat confused ENT: Sclera are clear Respiratory: Lungs diminished breath sounds bilaterally. No respiratory distress. Cardiovascular: Regular rate and rhythm Gastrointestinal: Abdomen is soft, non distended, non tender, BS present. Musculoskeletal: No lower extremity edema. Neurologic: No focal neurological deficit. Mental Status: A&O x2, normal affect. Not oriented to time. Skin: Multiple bruises with scabs on his lower extremities he tells me he sometimes falls at home LABORATORY DATA: See below. IMAGING: See chart MICROBIOLOGY: Please see below. ASSESSMENT/PLAN 69M history of hypertension, CAD, diabetes, came in not feeling well home health nurse notes he is confused. He is found to be A O 2. Workup shows UTI. Urine culture is pending. Possible PNA also. Admitted for further medical management. # Acute metabolic encephalopathy: Patient displays some confusion not oriented to time. This is likely from the underlying urinary tract infection and should resolve with treatment of the UTI. # UTI: Urinalysis positive. Follow-up urine culture and blood culture. IV ceftriaxone. # Possible pneumonia: Pneumonia is questionable possible on chest x-ray. No leukocytosis no fever. No shortness of breath. Follow-up pro-calcitonin and Sputum cultures. IV ceftriaxone and doxycycline. Follow blood culture. # Hyperkalemia: k5.2 on admit. kayexelate. Recheck BMP. Hold lisinopril for now. # Hypertension: Continue home meds, except lisinopril. Monitor and titrate # DM: ISS. Frequent Accu-Cheks. Hypoglycemic precautions. Hold metformin. Diabetic diet. # CKD: Creatinine appears to be near baseline. Avoid nephrotoxins. Follow-up with PCP. # CAD with stenting: Continue aspirin and statin. # DVT prophylaxis: Heparin A [facility] Hospitalist Vital Signs Vital Signs Date Time Temp Pulse Resp B/P (MAP) Pulse Ox O2 Delivery O2 Flow Rate FiO2 05/20/20 22:28 65 99 05/20/20 22:15 130/62 (84) 05/20/20 19:40 17 05/20/20 19:25 Room Air 05/20/20 16:21 95.9 Laboratory Data Labs 24H Laboratory Tests 2 05/20/20 15:35: Immature Granulocyte % (Auto) 0.4, Neutrophils (%) (Auto) 76.0H, Lymphocytes (%) (Auto) 15.5L, Monocytes (%) (Auto) 6.0, Eosinophils (%) (Auto) 1.4, Basophils (%) (Auto) 0.7, Neutrophils # (Auto) 4.2, Lymphocytes # (Auto) 0.9L, Monocytes # (Auto) 0.3, Eosinophils # (Auto) 0.1, Basophils # (Auto) 0.0, Nucleated Red Blood Cells % (auto) 0.0, Anion Gap 7L, Glomerular Filtration Rate 56.8, Osmolality 304H, Calcium Level 8.9, Total Bilirubin 0.5, Direct Bilirubin 0.2, Aspartate Amino Transf (AST/SGOT) 34, Alanine Aminotransferase (ALT/SGPT) 36, Alkaline Phosphatase 127H, Ammonia < 10, Total Creatine Kinase 77, Creatine Kinase MB 7.4H, Creatine Kinase MB Relative Index 9.61H, Troponin I < 0.02, Total Protein 6.7, Albumin 3.5, Albumin/Globulin Ratio 1.1, Thyroid Stimulating Hormone (TSH) 2.510 05/20/20 16:19: Coronavirus (COVID-19)(PCR) NEGATIVE, Influenza Type A (RT-PCR) NEGATIVE, Influenza Type B (RT-PCR) NEGATIVE, Respiratory Syncytial Virus (PCR) NEGATIVE 05/20/20 17:24: Urine Color YELLOW, Urine Appearance CLOUDYH, Urine pH 5.0, Urine Specific [place] 1.021, Urine Protein 1+H, Urine Glucose (UA) NEGATIVE, Urine Ketones NEGATIVE, Urine Blood 2+H, Urine Nitrite POSITIVEH, Urine Bilirubin NEGATIVE, Urine Urobilinogen 2.0H, Urine Leukocyte Esterase 3+H, Urine WBC (Auto) 47H, Ur ine RBC (Auto) 7H, Urine Hyaline Casts (Auto) 0, Urine Bacteria (Auto) 1+H, Urine Squamous Epithelial Cells 0, Urine Mucus (Auto) SMALL, Urine Sperm (Auto) CBC/BMP Laboratory Tests 05/20/20 15:35 Microbiology Microbiology 05/20/20 Blood Culture, Received Pending 05/20/20 Blood Culture, Received Pending 05/20/20 Urine Culture, Received Pending Home Medications Scheduled Amlodipine Besylate (Amlodipine Besylate) 5 Mg Tablet, 5 MG PO DAILY Aspirin (Aspirin EC) 81 Mg Tablet.dr, 81 MG PO DAILY Atorvastatin Calcium (Atorvastatin Calcium) 40 Mg Tab, 40 MG PO DAILY Lisinopril (Lisinopril) 20 Mg Tab, 20 MG PO DAILY Metformin HCl (Metformin HCl ER) 500 Mg Tab.er.24h, 1,000 MG PO BID Miscellaneous Medications [Med Rec Comment] LIST OBTAINED FROM PHARMACY Allergies Coded Allergies: No Known Allergies (Unverified , 04/05/18) A-FIB/CHADSVASC A-FIB History Current/History of A-Fib/PAF?: No JEAN SILVA MD May 20, 2020 22:55
[2020-05-20] MEDS: DOXYCYCLINE HYCLATE 100 MG in D5W MINI-BAG PLUS 100 ML IV SCH (23:21)
[2020-05-21 06:00] VITALS: BP 148/66
[2020-05-21] MEDS: HEPARIN SOD (PORCINE) 5000UNITS/ML 1ML VIAL/SYRINGE SC SCH ×3 (06:18→22:27)
[2020-05-21 06:55] LABS: HEMATOCRIT 35.8 % (42.0-52.0); HEMOGLOBIN 11.3 g/dl (13.5-17.5); MEAN CORPUSCULAR HEMOGLOBIN 29.4 pg (27.0-33.0); MEAN CORPUSCULAR HGB CONC 31.6 g/dl (32.0-36.5); MEAN CORPUSCULAR VOLUME 93.2 fl (80.0-96.0); PLATELET COUNT, AUTOMATED 198 10^3/uL (150-450); RED BLOOD COUNT 3.84 10^6/uL (4.30-6.10); WHITE BLOOD COUNT 5.7 10^3/uL (4.0-10.0)
[2020-05-21 07:27] LABS: ALBUMIN 3.4 GM/DL (3.2-5.2); ALT/SGPT 39 U/L (12-78); BILIRUBIN,TOTAL 0.5 MG/DL (0.2-1.0); BLOOD UREA NITROGEN 40 MG/DL (7-18); CALCIUM LEVEL 9.1 MG/DL (8.8-10.2); CARBON DIOXIDE LEVEL 26 MEQ/L (21-32); CHLORIDE LEVEL 113 MEQ/L (98-107); CREATININE FOR GFR 1.21 MG/DL (0.70-1.30); GLOMERULAR FILTRATION RATE > 60.0 (>49); GLUCOSE, FASTING 83 MG/DL (70-100); MAGNESIUM LEVEL 1.9 MG/DL (1.8-2.4); POTASSIUM SERUM 4.7 MEQ/L (3.5-5.1); SODIUM LEVEL 144 MEQ/L (136-145); TOTAL PROTEIN 7.1 GM/DL (6.4-8.2)
[2020-05-21] MEDS: HumaLOG INSULIN (NovoLOG) PER UNIT SC SCH ×4 (07:30→21:00)
[2020-05-21] MEDS ORDERED: MOM 30ML SUSPENSION UDC PO PRN (09:15)
[2020-05-21] MEDS: ATORVASTATIN 20 MG TAB PO SCH (09:29)
[2020-05-21] MEDS: DOCUSATE SODIUM 100MG CAPSULE PO SCH ×2 (09:29→22:27)
[2020-05-21] MEDS: ASPIRIN 81MG ENTERIC TABLET PO SCH (09:29)
[2020-05-21] MEDS: amLODIPine 5 MG TAB PO SCH (09:30)
[2020-05-21] MEDS: DOXYCYCLINE HYCLATE 100 MG in D5W MINI-BAG PLUS 100 ML IV SCH ×2 (11:53→23:11)
[2020-05-21] MEDS: SENOKOT S TAB PO SCH ×2 (12:06→22:26)
[2020-05-21 14:27] VITALS: BP 120/63
[2020-05-21] MEDS ORDERED: cefTRIAXone SOD 1 GM in D5W MINI-BAG PLUS 50 ML IV SCH (20:00)
--- NOTE | 2020-05-21 20:02 | IPNPDOC ---
Subjective Date Seen The patient was seen on 05/21/20. Subjective Chief Complaint/HPI Patient does not offer any complaints. Does not know where he is and why he is here. He says that he lives with Azar his brother. No fever or cough. Objective Physical Examination General Exam: Positive: Cooperative, No Acute Distress, Other (confused with non fluent speech. has some stuttering. ) Neck Exam: Positive: Supple; Negative: JVD, thyromegaly Chest Exam: Positive: Clear to auscultation, Normal air movement Heart Exam: Positive: Rate Normal, Regular Rhythm, Normal S1, Normal S2; Negative: Murmurs, Rubs Abdomen Exam: Positive: Normal bowel sounds, Soft; Negative: Tenderness, Hepatospenomegaly Extremity Exam: Negative: Clubbing, Cyanosis, Edema Assessment /Plan Assessment 69-year-old male history of coronary artery disease with stenting in 2018, chronic urinary retention with chronic garner, hypertension, wes-zlteeyq-ufbtllgre diabetes who comes to the hospital after his home health nurse noticed he appeared more confused than usual. Patient was confused and could not give any reliable history. He was noted to have a dirty UA and CT abd and pelvis done for possible abdominal pain showed left lower lobe infiltrates. He was admitted for pneumonia and possible UTI. Pneumonia as seen in CT abdomen. However this is likely atelectasis rather than pneumonia. As no fever no elevated WBC, procalcitonin is 0.07 only. this is not a bacterial infection. could be viral. will dc antibiotics once blood cultures are back. Dirty Ua i do not think he has any UTI this is likely colonization from chronic garner Confusion Acute metabolic encephalopathy vs Dementia documentation in PMD's note form 2019 shows that he cannot remember his meds, has health aid to give his meds. He had issues with personal hygiene and grooming. CT head shows significant microvascular disease Diabetes with neuropathy continue amlodipine, will hold lisinopril. Chronic urinary retention due to BPH has chronic indwelling garner. CAD s/p AMI s/p with stenting 2017 no issues at this time. Hypertension home meds HLD statin High degree A-V block s/p dual chamber pacemaker in 209 Plan/VTE VTE Prophylaxis Ordered?: Yes VS, I&O, 24H, Fishbone Vital Signs/I&O Vital Signs Date Time Temp Pulse Resp B/P (MAP) Pulse Ox O2 Delivery O2 Flow Rate FiO2 4/7/21 14:27 97.3 60 16 120/63 (82) 98 Room Air I&O- Last 24 Hours up to 6 AM 05/21/20 07:00 Intake Total 140 ml Output Total 250 ml Balance -110 ml Laboratory Data 24H LABS Laboratory Tests 2 05/20/20 23:04: Bedside Glucose (Misc Panel) 198H 05/21/20 06:30: Nucleated Red Blood Cells % (auto) 0.0, Anion Gap 5L, Glomerular Filtration Rate > 60.0, Calcium Level 9.1, Magnesium Level 1.9, Total Bilirubin 0.5, Aspartate Amino Transf (AST/SGOT) 37, Alanine Aminotransferase (ALT/SGPT) 39, Alkaline Phosphatase 134H, Total Protein 7.1, Albumin 3.4, Albumin/Globulin Ratio 0.9, Procalcitonin 0.07 05/21/20 11:57: Bedside Glucose (Misc Panel) 62L 05/21/20 16:24: Bedside Glucose (Misc Panel) 160H CBC/BMP Laboratory Tests 05/21/20 06:30 Microbiology Microbiology 05/20/20 Blood Culture, Received Pending 05/20/20 Blood Culture, Received Pending 05/20/20 Urine Culture, Received Pending RUPERTO BOURGEOIS MD May 21, 2020 20:02
[2020-05-21 22:00] VITALS: BP 131/66
[2020-05-22] MEDS: HEPARIN SOD (PORCINE) 5000UNITS/ML 1ML VIAL/SYRINGE SC SCH ×3 (05:21→21:34)
[2020-05-22 06:00] VITALS: BP 137/64
[2020-05-22] MEDS: HumaLOG INSULIN (NovoLOG) PER UNIT SC SCH (07:30)
[2020-05-22] MEDS: SENOKOT S TAB PO SCH ×2 (08:31→21:34)
[2020-05-22] MEDS: ASPIRIN 81MG ENTERIC TABLET PO SCH (08:31)
[2020-05-22] MEDS: DOCUSATE SODIUM 100MG CAPSULE PO SCH ×2 (08:31→21:34)
[2020-05-22] MEDS: ATORVASTATIN 20 MG TAB PO SCH (08:31)
[2020-05-22] MEDS: amLODIPine 5 MG TAB PO SCH (08:33)
--- NOTE | 2020-05-22 10:46 | IPNPDOC ---
Subjective Date Seen The patient was seen on 05/22/20. Subjective Chief Complaint/HPI Patient is pleasantly confused. Alert and cooperative but Oriented to name only. When i ask him "where are you now" he replies that he is at home. When i rephrase it and ask what is the name of this place he again says his home. I ask about his family he says they are right here and points towards the head end of the bed. He does not know where he is and why he is here. He did finish his full breakfast tray. He has been hypoglycemic in the last 24 hours. It seems like he is at his baseline mental status. 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 has some stuttering. ) Eye Exam: Positive: Conjunctiva & lids normal ENT Exam: Positive: Atraumatic, Mucous membr. moist/pink Neck Exam: Positive: Supple; Negative: JVD, thyromegaly Chest Exam: Positive: Clear to auscultation, Normal air movement Heart Exam: Positive: Rate Normal, Regular Rhythm, Normal S1, Normal S2; Negative: Murmurs, Rubs Abdomen Exam: Positive: Normal bowel sounds, Soft; Negative: Tenderness, Hepatospenomegaly Extremity Exam: Negative: Clubbing, Cyanosis, Edema Skin Exam: Positive: Nl turgor and temperature; Negative: Rash, Breakdown Assessment /Plan Assessment 69-year-old male history of coronary artery disease/ STEMI with stenting in 2018, chronic urinary retention with chronic garner, hypertension, qah-jtmwlbp-hubhfympn diabetes who comes to the hospital after his home health nurse noticed he appeared more confused than usual. Patient was confused and could not give any reliable history. He was noted to have a dirty UA and CT abd and pelvis done for possible abdominal pain showed left lower lobe infiltrates. He was admitted for pneumonia and possible UTI. Atelectasis cultures negative will dc antibiotics. Dirty Ua i do not think he has any UTI this is likely colonization from chronic garner Confusion Acute metabolic encephalopathy vs Dementia documentation in PMD's note form 2019 shows that he cannot remember his meds, has health aid to give his meds. He had issues with personal hygiene and grooming. CT head shows significant microvascular disease Patient likely has vascular dementia with what i presume some kind of preexisting intellectual disability which unfortunately never documented previously. I tried to call Azar his brother at [phone] to get more information about the home situation and left a message. PFS consulted At this time it looks like he will need placement if 24 x 7 care cannot be arranged at home. Diabetes with neuropathy continue amlodipine, will hold lisinopril. hypoglycemic, will stop lispro. Chronic urinary retention due to BPH has chronic indwelling garner. CAD s/p AMI s/p with stenting 2017 no issues at this time. Hypertension home meds HLD statin High degree A-V block s/p dual chamber pacemaker in 2019 Plan/VTE VTE Prophylaxis Ordered?: Yes VS, I&O, 24H, Fishbone Vital Signs/I&O Vital Signs Date Time Temp Pulse Resp B/P (MAP) Pulse Ox O2 Delivery O2 Flow Rate FiO2 05/22/20 08:33 72 111/49 05/22/20 06:00 97.3 18 98 Room Air I&O- Last 24 Hours up to 6 AM 05/22/20 06:00 Intake Total 760 ml Output Total 250 ml Balance 510 ml Laboratory Data 24H LABS Laboratory Tests 2 05/21/20 11:57: Bedside Glucose (Misc Panel) 62L 05/21/20 16:24: Bedside Glucose (Misc Panel) 160H 05/21/20 22:20: Bedside Glucose (Misc Panel) 90 05/22/20 05:31: Bedside Glucose (Misc Panel) 48L 05/22/20 06:27: Bedside Glucose (Misc Panel) 91 Microbiology Microbiology 05/20/20 Blood Culture - Preliminary, Resulted No growth after 24 hours . All specim... 05/20/20 Blood Culture - Preliminary, Resulted No growth after 24 hours . All specim... 05/20/20 Urine Culture, Received Pending RUPERTO BOURGEOIS MD May 22, 2020 10:46
[2020-05-22 14:43] VITALS: BP 102/43
[2020-05-22 22:00] VITALS: BP 141/60
[2020-05-23] MEDS: HEPARIN SOD (PORCINE) 5000UNITS/ML 1ML VIAL/SYRINGE SC SCH ×3 (05:21→21:46)
[2020-05-23 06:00] VITALS: BP 139/60
[2020-05-23] MEDS: LACTOBACILLUS ACIDOPHILUS CAP (BACID) PO SCH ×2 (08:00→17:12)
[2020-05-23] MEDS: SENOKOT S TAB PO SCH ×2 (08:20→21:46)
[2020-05-23] MEDS: DOCUSATE SODIUM 100MG CAPSULE PO SCH (08:20)
[2020-05-23] MEDS: ATORVASTATIN 20 MG TAB PO SCH (08:20)
[2020-05-23] MEDS: ASPIRIN 81MG ENTERIC TABLET PO SCH (08:20)
[2020-05-23] MEDS: amLODIPine 5 MG TAB PO SCH (08:22)
--- NOTE | 2020-05-23 10:04 | IPNPDOC ---
Subjective Date Seen The patient was seen on 05/23/20. Subjective Chief Complaint/HPI Patient is awake, alert very pleasant. More conversational today. Does have a stammering speech. He says that he is in [place]. He is having breakfast. He says he likes the food here and he loves to eat. Then says he tries not to eat too much as then he has to go for bowels . He denies any dysuria. Objective Physical Examination General Exam: Positive: Alert, Cooperative, No Acute Distress, Other (oriented x1) Neck Exam: Positive: Supple; Negative: JVD, thyromegaly Chest Exam: Positive: Clear to auscultation, Normal air movement Heart Exam: Positive: Rate Normal, Regular Rhythm, Normal S1, Normal S2; Negative: Murmurs, Rubs Abdomen Exam: Positive: Normal bowel sounds, Soft; Negative: Tenderness, Hepatospenomegaly Extremity Exam: Negative: Clubbing, Cyanosis, Edema Neuro Exam: Positive: Strength at 5/5 X4 ext, Normal Tone Psych Exam: Negative: Mental status NL, Memory Intact, Oriented x 3 Assessment /Plan Assessment 69-year-old male history of coronary artery disease/ STEMI with stenting in 2018 , chronic urinary retention with chronic garner, hypertension, zfj-qzalyca-olkumzjxi diabetes who comes to the hospital after his home health nurse noticed he appeared more confused than usual. Patient was confused and could not give any reliable history. He was noted to have a dirty UA and CT abd and pelvis done for possible abdominal pain showed left lower lobe infiltrates. He was admitted for pneumonia and possible UTI. Atelectasis cultures negative will dc antibiotics. Dirty Ua I do not think he has any UTI this is likely colonization from chronic garner Urine culture with multiple oraganisms consulted ID. Confusion Acute metabolic encephalopathy vs Dementia documentation in PMD's note form 2019 shows that he cannot remember his meds, has health aid to give his meds. He had issues with personal hygiene and grooming. CT head shows significant microvascular disease Patient likely has vascular dementia with what i presume some kind of preexisting intellectual disability which unfortunately never documented previously. I tried to call Azar his brother at [phone] to get more information about the home situation and left a message. PFS consulted At this time it looks like he will need placement if 24 x 7 care cannot be arranged at home. Diabetes with neuropathy continue amlodipine, will hold lisinopril. hypoglycemic, will stop lispro. Chronic urinary retention due to BPH has chronic indwelling garner. CAD s/p AMI s/p with stenting 2017 no issues at this time. Hypertension home meds HLD statin High degree A-V block s/p dual chamber pacemaker in 2019 Plan/VTE VTE Prophylaxis Ordered?: Yes VS, I&O, 24H, Fishbone Vital Signs/I&O Vital Signs Date Time Temp Pulse Resp B/P (MAP) Pulse Ox O2 Delivery O2 Flow Rate FiO2 05/23/20 08:22 61 141/73 05/23/20 06:00 96.1 19 98 Room Air I&O- Last 24 Hours up to 6 AM 05/23/20 06:00 Intake Total 1640 ml Output Total 1600 ml Balance 40 ml Laboratory Data 24H LABS Laboratory Tests 2 05/22/20 12:02: Bedside Glucose (Misc Panel) 85 05/22/20 17:03: Bedside Glucose (Misc Panel) 68L 05/22/20 20:09: Bedside Glucose (Misc Panel) 157H Microbiology Microbiology 05/20/20 Blood Culture - Preliminary, Resulted No Growth after 48 hours. All Specime... 05/20/20 Blood Culture - Preliminary, Resulted No Growth after 48 hours. All Specime... 05/20/20 Urine Culture - Final, Complete Escherichia Coli Providencia Rettgeri Citrobacter Freundii Enterococcus Faecalis Pseudomonas Aeruginosa RUPERTO BOURGEOIS MD May 23, 2020 10:04
[2020-05-23 10:46] LABS: HEMOGLOBIN A1c 5.4 %
[2020-05-23] MEDS ORDERED: LevoFLOXacin 750 MG TABLET PO ONE (11:00)
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
[2020-05-23 14:00] VITALS: BP 140/66
[2020-05-23 22:00] VITALS: BP 127/63
[2020-05-24] MEDS: HEPARIN SOD (PORCINE) 5000UNITS/ML 1ML VIAL/SYRINGE SC SCH ×3 (05:44→21:36)
[2020-05-24] MEDS: LevoFLOXacin 750 MG TABLET PO SCH (05:44)
[2020-05-24 06:00] VITALS: BP 136/80
--- NOTE | 2020-05-24 08:55 | IPNPDOC ---
Subjective Date Seen The patient was seen on 05/24/20. Subjective Chief Complaint/HPI No issues over night. Pleasantly confused knows his name. alert and cooperative. Objective Physical Examination General Exam: Positive: Alert, Cooperative, No Acute Distress, Other (oriented x1) Eye Exam: Positive: PERRLA, Conjunctiva & lids normal Neck Exam: Positive: Supple; Negative: JVD, thyromegaly Chest Exam: Positive: Clear to auscultation, Normal air movement Heart Exam: Positive: Rate Normal, Regular Rhythm, Normal S1, Normal S2; Negative: Murmurs, Rubs Abdomen Exam: Positive: Normal bowel sounds, Soft; Negative: Tenderness, Hepatospenomegaly Extremity Exam: Negative: Clubbing, Cyanosis, Edema Neuro Exam: Positive: Strength at 5/5 X4 ext, Normal Tone Psych Exam: Negative: Mental status NL, Memory Intact, Oriented x 3 Assessment /Plan Assessment 69-year-old male history of coronary artery disease/ STEMI with stenting in 2018, chronic urinary retention with chronic garner, hypertension, ilx-[id number]-rdfsrvhga diabetes who comes to the hospital after his home health nurse noticed he appeared more confused than usual. Patient was confused and could not give any reliable history. He was noted to have a dirty UA and CT abd and pelvis done for possible abdominal pain showed left lower lobe infiltrates. He was admitted for pneumonia and possible UTI. Left lower lobe pneumonia he had AMS compared to baseline and temp was 95.9 so ID thinks this may be pneumonia rather than atelectasis. he had recieved 2 days of antibiotics before will start on levofloxacin for 5 days. blood cultures negative, procalcitonin not elevated. Dirty Ua Urine culture with multiple organisms. Cath was changed in the ED with 16 coude unsure if urine was sent after the cath change. So this may be a catheter related UTI vs colonization. started on Levofloxacin. Confusion Acute metabolic encephalopathy due to infection on the back ground of Dementia documentation in PMD's note form 2019 shows that he cannot remember his meds, has health aid to give his meds. He had issues with personal hygiene and gr ooming. CT head shows significant microvascular disease Patient likely has vascular dementia with what i presume some kind of pr eexisting intellectual disability which unfortunately never documented previously. I tried to call Azar his brother at [phone] to get more information about the home situation and left a message. PFS consulted At this time it looks like he will need placement if 24 x 7 care cannot be arranged at home. Diabetes with neuropathy continue amlodipine, will hold lisinopril. hypoglycemic, will stop lispro. Chronic urinary retention due to BPH has chronic indwelling garner. CAD s/p AMI s/p with stenting 2017 no issues at this time. Hypertension home meds HLD statin High degree A-V block s/p dual chamber pacemaker in 2019 Plan/VTE VTE Prophylaxis Ordered?: Yes VS, I&O, 24H, Fishbone Vital Signs/I&O Vital Signs Date Time Temp Pulse Resp B/P (MAP) Pulse Ox O2 Delivery O2 Flow Rate FiO2 05/24/20 06:00 97.5 60 17 136/80 (98) 98 Room Air I&O- Last 24 Hours up to 6 AM 05/24/20 06:00 Intake Total 360 ml Output Total 700 ml Balance -340 ml Laboratory Data 24H LABS Laboratory Tests 2 05/23/20 10:18: Estimated Mean Plasma Glucose 108, Hemoglobin A1c 5.4 05/23/20 20:51: Bedside Glucose (Misc Panel) 113 Microbiology Microbiology 05/20/20 Blood Culture - Preliminary, Resulted No Growth after 72 hours. All specime... 05/20/20 Blood Culture - Preliminary, Resulted No Growth after 72 hours. All specime... 05/20/20 Urine Culture - Final, Complete Escherichia Coli Providencia Rettgeri Citrobacter Freundii Enterococcus Faecalis Pseudomonas Aeruginosa RUPERTO BOURGEOIS MD May 24, 2020 08:55
[2020-05-24 09:20] VITALS: BP 117/55
[2020-05-24] MEDS: LACTOBACILLUS ACIDOPHILUS CAP (BACID) PO SCH ×2 (09:48→18:18)
[2020-05-24] MEDS: SENOKOT S TAB PO SCH ×2 (09:48→21:36)
[2020-05-24] MEDS: ATORVASTATIN 20 MG TAB PO SCH (09:49)
[2020-05-24] MEDS: ASPIRIN 81MG ENTERIC TABLET PO SCH (09:49)
[2020-05-24] MEDS: amLODIPine 5 MG TAB PO SCH (09:50)
[2020-05-24 14:00] VITALS: BP 136/61
[2020-05-24 21:13] VITALS: BP 120/64
[2020-05-25] MEDS: LevoFLOXacin 750 MG TABLET PO SCH (05:48)
[2020-05-25] MEDS: HEPARIN SOD (PORCINE) 5000UNITS/ML 1ML VIAL/SYRINGE SC SCH ×3 (05:48→21:37)
[2020-05-25 06:00] VITALS: BP 138/58
[2020-05-25] MEDS: ATORVASTATIN 20 MG TAB PO SCH (08:57)
[2020-05-25] MEDS: ASPIRIN 81MG ENTERIC TABLET PO SCH (08:58)
[2020-05-25] MEDS: SENOKOT S TAB PO SCH ×2 (08:58→21:00)
[2020-05-25] MEDS: LACTOBACILLUS ACIDOPHILUS CAP (BACID) PO SCH ×2 (08:58→17:54)
[2020-05-25] MEDS: amLODIPine 5 MG TAB PO SCH (08:59)
[2020-05-25 14:00] VITALS: BP 140/66
[2020-05-26] MEDS: LevoFLOXacin 750 MG TABLET PO SCH (05:40)
[2020-05-26] MEDS: HEPARIN SOD (PORCINE) 5000UNITS/ML 1ML VIAL/SYRINGE SC SCH ×3 (05:41→20:11)
[2020-05-26 06:00] VITALS: BP 143/66
[2020-05-26 07:45] VITALS: BP 138/68
[2020-05-26] MEDS: ASPIRIN 81MG ENTERIC TABLET PO SCH (08:02)
[2020-05-26] MEDS: amLODIPine 5 MG TAB PO SCH (08:02)
[2020-05-26] MEDS: SENOKOT S TAB PO SCH ×2 (08:04→20:11)
[2020-05-26] MEDS: ACETAMINOPHEN TAB 650MG DOSE (2X325MG) PO PRN ×2 (08:04→20:11)
[2020-05-26] MEDS: LACTOBACILLUS ACIDOPHILUS CAP (BACID) PO SCH ×2 (08:04→18:10)
[2020-05-26] MEDS: ATORVASTATIN 20 MG TAB PO SCH (08:05)
[2020-05-26 14:03] VITALS: BP 140/67
--- NOTE | 2020-05-26 20:27 | IPN ---
INFECTIOUS DISEASE PROGRESS NOTE DATE: 05/26/2020 SUBJECTIVE: Mr. Reese seems to be doing well. He has no complaints. No fever or chills. No cough or shortness of breath. He denies any abdominal pain or urinary symptoms. PHYSICAL EXAMINATION: Temperature is 97.6, pulse 66, respirations 17, blood pressure 140/67, oxygen saturation 98% on room air. HEART: Normal S1, S2. No murmurs, rubs or gallops. LUNGS: Clear. No wheezes, rales or rhonchi. ABDOMEN: No suprapubic pain. EXTREMITIES: No clubbing, cyanosis or edema. Onychomycosis multiple toes. LABORATORY DATA: No recent labs were done. Last labs were done on 05/21/2020. Procalcitonin was 0.07. IMPRESSION: 1. Polymicrobial urinary tract infection versus asymptomatic bacteria. Patient will be finishing levofloxacin 750 mg by mouth daily on 05/27/2020. 2. Left lower lobe pneumonia. Patient received two days of intravenous (IV) ceftriaxone and Zithromax, followed by five days of levofloxacin for a total of seven days of treatment. PLAN: Discontinue levofloxacin on 05/27/2020. Continue probiotics one table by mouth twice a day for at least 2-4 weeks.
[2020-05-27] MEDS: HEPARIN SOD (PORCINE) 5000UNITS/ML 1ML VIAL/SYRINGE SC SCH ×3 (05:34→21:48)
[2020-05-27] MEDS: LevoFLOXacin 750 MG TABLET PO SCH (05:34)
[2020-05-27 06:00] VITALS: BP 144/61
[2020-05-27 08:10] VITALS: BP 168/73
[2020-05-27 08:27] VITALS: BP 142/72
[2020-05-27] MEDS: ATORVASTATIN 20 MG TAB PO SCH (08:28)
[2020-05-27] MEDS: SENOKOT S TAB PO SCH ×2 (08:28→21:48)
[2020-05-27] MEDS: ASPIRIN 81MG ENTERIC TABLET PO SCH (08:29)
[2020-05-27] MEDS: LACTOBACILLUS ACIDOPHILUS CAP (BACID) PO SCH ×2 (08:29→17:48)
[2020-05-27] MEDS: amLODIPine 5 MG TAB PO SCH (08:29)
[2020-05-27 13:32] VITALS: BP 131/63
[2020-05-28] MEDS: HEPARIN SOD (PORCINE) 5000UNITS/ML 1ML VIAL/SYRINGE SC SCH (05:53)
[2020-05-28 06:00] VITALS: BP 145/77
[2020-05-28] MEDS ORDERED: SENN-52 PO (07:48)
[2020-05-28] MEDS ORDERED: RISATAB3 PO (07:48)
[2020-05-28] MEDS ORDERED: ACET1TAB55 PO (07:48)
--- NOTE | 2020-05-28 07:50 | DS.PDOC ---
Discharge Summary General Date of Admission May 20, 2020 at 22:51 Date of Discharge 05/28/20 Discharge Summary PROCEDURES PERFORMED DURING STAY: [None]. COMPLICATIONS/CHIEF COMPLAINT: Ams,Pneumonia,Uti. HISTORY OF PRESENT ILLNESS: 69-year-old male history of coronary artery disease with stenting in 2018, hypertension, hwx-[id number]-tzrzhwfms diabetes who comes to the hospital after his home health nurse noticed he appeared more confused. In the ED patient says he is not feeling well overall and not sure what it is. At baseline he is usually alert and oriented x3 currently is not oriented to time. On review of systems patient endorses that he does have some dysuria ongoing for about a week. He also tells me he's had a green productive sputum on and off but this is chronic and has been happening for years. He denies a fever or chills denies chest pain and denies shortness of breath denies abdominal pain denies lower extremity swelling. HOSPITAL COURSE: 69-year-old male history of coronary artery disease/ STEMI with stenting in 2018, chronic urinary retention with chronic garner, hypertension, [id number] diabetes admitted for worsening confusion. Patient was co nfused and could not give any reliable history. UA showing likely infectio and CT abd and pelvis done for possible abdominal pain showed left lower lobe infiltrates. He was admitted for pneumonia and possible UTI. Left lower lobe pneumonia Given encephalopathy and hypothermia to 95.9, ID thinks this may be pneumonia rather than atelectasis. he had recieved 2 days of antibiotics and transitioned to PO levofloxacin for 5 days. blood cultures negative, procalcitonin not elevated. Urinary Tract Infection Urine culture with multiple organisms. Cath was changed in the ED with 16 coude, uncertain if urine was sent after the cath change. So this may be a catheter related UTI vs colonization. Completed course of levofloxacin Confusion Acute metabolic encephalopathy due to infection on the back ground of Dementia CT head shows significant microvascular disease Patient likely has vascular dementia with possible preexisting intellectual disabilit Diabetes with neuropathy continue amlodipine, will hold lisinopril. Chronic urinary retention due to BPH has chronic indwelling garner. CAD s/p AMI s/p with stenting 2017 no issues at this time. cont with meds Hypertension home meds HLD statin High degree A-V block s/p dual chamber pacemaker in 2019 DISCHARGE MEDICATIONS: Please see below. ALLERGIES: Please see below. PHYSICAL EXAMINATION ON DISCHARGE: VITAL SIGNS: Please see below. GENERAL: appears well, not in distress HEENT: PERRLA NECK: supple CARDIOVASCULAR EXAMINATION: RRR, normal S1, S2 RESPIRATORY EXAMINATION: CTAB ABDOMINAL EXAMINATION: soft, non tender EXTREMITIES: no edema SKIN: warm, dry NEUROLOGICAL EXAMINATION: moving all 4 extremities LABORATORY DATA: Please see below. IMAGING: CT head wo contrast (05/20/20): No acute findings. Age-related volume loss and white matter changes. CT abdo (05/20/20) 1. Left lower lobe pneumonia. 2. 5 mm right lower lobe nodule is not in the field of view on the prior exam. For patients at low risk (minimal or absent history of smoking and of other known risk factors), no routine follow-up is indicated. For patients at high risk (history of smoking or of other known risk factors), consider optional CT Chest at 12 months. (Reference: oRbert) 3. Multiple renal cysts. No urinary tract calculi or hydronephrosis. 4. Mild urinary bladder wall thickening may be due to cystitis or artifact related to decompression by the Garner catheter. 5. Mild constipation. CXR (05/20/20): FINDINGS: Tubes, catheters and devices: Pacemaker in expected location. Lungs: Possible retrocardiac opacity in the left lung base. Lungs are otherwise clear. Pleural spaces: Unremarkable. No pleural effusion. No pneumothorax. Heart/Mediastinum: Unremarkable. No cardiomegaly. Bones/joints: Skeletal degenerative changes are noted. IMPRESSION: Possible left basilar pneumonia. PROGNOSIS: fair ACTIVITY: [As tolerated]. DIET: consistent carbohydrate diet DISCHARGE PLAN: probiotics x 4 weeks. DISPOSITION: Transfer to [facility] for rehab. DISCHARGE INSTRUCTIONS: F/u PCP 3-5 days F/u urology 1-2 weeks Return to ER or call 911 if you develop fevers, chills, chest pain, cough, shortness of breath, or otherwise worsening of your symptoms. ITEMS TO FOLLOWUP ON ON OUTPATIENT: f/u pulm nodule DISCHARGE CONDITION: Stable TIME SPENT ON DISCHARGE: 35 monutes Vital Signs/I&Os Vital Signs Date Time Temp Pulse Resp B/P (MAP) Pulse Ox O2 Delivery O2 Flow Rate FiO2 05/28/20 06:00 97.8 80 17 145/77 (99) 98 Room Air I&O- Last 24 Hours up to 6 AM 05/28/20 06:00 Intake Total 1240 ml Output Total 875 ml Balance 365 ml Laboratory Data Labs 24H Laboratory Tests 2 05/27/20 15:44: Coronavirus (COVID-19)(PCR) NEGATIVE 05/27/20 20:09: Bedside Glucose (Misc Panel) 153H 05/28/20 06:09: Bedside Glucose (Misc Panel) 83 FSBS Laboratory Tests Test 05/27/20 20:09 05/28/20 06:09 Range/Units Bedside Glucose (Misc Panel) 153 83 80-115 MG/DL Microbiology Microbiology 05/20/20 Blood Culture - Final, Complete NO GROWTH AFTER 5 DAYS 05/20/20 Blood Culture - Final, Complete NO GROWTH AFTER 5 DAYS 05/20/20 Urine Culture - Final, Complete Escherichia Coli Providencia Rettgeri Citrobacter Freundii Enterococcus Faecalis Pseudomonas Aeruginosa Discharge Medications Scheduled Amlodipine Besylate (Amlodipine Besylate) 5 Mg Tablet, 5 MG PO DAILY, (Reported) Aspirin (Aspirin EC) 81 Mg Tablet.dr, 81 MG PO DAILY, (Reported) Atorvastatin Calcium (Atorvastatin Calcium) 40 Mg Tab, 40 MG PO DAILY, (Reported) L.acidoph/L.bulg/B.bif/S.therm (Jocleynn-Bid Caplet) 1 Each Tablet, 1 EA PO BIDWM Metformin HCl (Metformin HCl ER) 500 Mg Tab.er.24h, 1,000 MG PO BID, (Reported) Sennosides/Docusate Sodium (Senna Plus Tablet) 1 Each Tablet, 1 TAB PO BID Scheduled PRN Acetaminophen (Acetaminophen) 325 Mg Tablet, 650 MG PO Q4H PRN for PAIN OR FEVER Miscellaneous Medications [Med Rec Comment] , (Reported) LIST OBTAINED FROM PHARMACY Allergies Coded Allergies: No Known Allergies (Unverified , 04/05/18) HEMANTH WALKER MD May 28, 2020 07:49
[2020-05-28] MEDS: SENOKOT S TAB PO SCH (07:52)
[2020-05-28] MEDS: LACTOBACILLUS ACIDOPHILUS CAP (BACID) PO SCH (07:52)
[2020-05-28] MEDS: ASPIRIN 81MG ENTERIC TABLET PO SCH (07:52)
[2020-05-28] MEDS: ATORVASTATIN 20 MG TAB PO SCH (07:52)
[2020-05-28 07:53] VITALS: BP 145/77
[2020-05-28] MEDS: amLODIPine 5 MG TAB PO SCH (07:53)
== END 2020-05-28 09:55 | DRG 193 ==
LOC: EDBD 15:10 → M ED 15:10 → M ED INP 22:51 → M MS5PR 05-21 00:15
PROVIDERS: ADMIT Family Medicine; ATTEND Family Medicine
DX: J18.9 Pneumonia, unspecified organism (principal); G93.41 Metabolic encephalopathy; F03.91 Unspecified dementia, unspecified severity, with behavioral disturbance; N39.0 Urinary tract infection, site not specified; Z79.899 Other long term (current) drug therapy; Z79.82 Long term (current) use of aspirin; I25.10 Atherosclerotic heart disease of native coronary artery without angina pectoris; Z95.2 Presence of prosthetic heart valve; I10 Essential (primary) hypertension; N40.0 Benign prostatic hyperplasia without lower urinary tract symptoms; E11.40 Type 2 diabetes mellitus with diabetic neuropathy, unspecified; Z95.0 Presence of cardiac pacemaker; I25.2 Old myocardial infarction; R91.1 Solitary pulmonary nodule

== ENCOUNTER → 2020-06-26 | Outpatient (REF) | payer MEDICARE, MEDICAID ==
[~2020-06-26] MED LIST changes: +ACET1TAB55 PO; +AMLO1TAB24 PO; +ASPI81TA27 PO; +RISATAB3 PO; +SENN-52 PO
[2020-06-26 13:57] LABS: APPEARANCE, URINE MANUAL CLEAR (CLEAR); COLOR, URINE MANUAL YELLOW (YELLOW)
[2020-06-26 13:58] LABS: BILIRUBIN, URINE MANUAL NEGATIVE (NEGATIVE); GLUCOSE, URINE (UA) MANUAL NEGATIVE (NEGATIVE); KETONE, URINE MANUAL NEGATIVE (NEGATIVE); PROTEIN, URINE MANUAL 1+ mg/dL (NEGATIVE); UROBILINOGEN, URINE MANUAL NORMAL (NORMAL)
[2020-06-26 13:59] LABS: BLOOD URINE MANUAL POSITIVE (NEGATIVE); LEUKOCYTE ESTERASE, URINE MAN POSITIVE (NEGATIVE); NITRITE, URINE MANUAL NEGATIVE (NEGATIVE)
[2020-06-26 14:01] LABS: RBC, URINE NONE SEEN /hpf (0-3)
[2020-06-26 14:02] LABS: BACTERIA, URINE NONE SEEN; HYALINE CAST, URINE NONE SEEN /lpf (0-1); SQUAMOUS EPITHELIAL CELL URINE NONE SEEN /hpf (SMALL AMT)
== END ==
LOC: M SMT 13:08
PROVIDERS: ATTEND Nurse Practitioner Women's Health
DX: N28.89 Other specified disorders of kidney and ureter (principal)
CPT/HCPCS: 51702; 81000; 87088; 87186; G0463

== ENCOUNTER 2020-09-12 17:39 | Emergency (ER) | payer MEDICARE, MEDICAID ==
[~2020-09-12] VITALS: Ht 177.8 cm; Wt 76.4 kg
[2020-09-12] MEDS ORDERED: DEXTROSE 50% 50 ML SYRINGE IV STA (18:25)
--- NOTE | 2020-09-12 19:13 | REP ---
INDICATION: distention; r/o obstruction. COMPARISON: [facility], 04/05/2018. TECHNIQUE: AP upright and supine images of the abdomen were performed. FINDINGS: There are multiple air containing loops of large and small bowel. There is no abnormal bowel dilatation or free intraperitoneal air. There is a large amount of stool in the rectal vault and the distal 1/2 of the colon. There is a bladder catheter. Note is made of a pacemaker. There are no significant bony abnormalities. IMPRESSION: Moderate constipation. No evidence of obstruction. <Electronically signed by Sawyer Joyce > 09/12/20 1910
[2020-09-12 19:42] LABS: BASO # 0.1 10^3/uL (0.0-0.2); BASO % 0.7 % (0.0-1.0); EOS # 0.2 10^3/uL (0.0-0.5); EOS % 2.6 % (0.0-3.0); HEMOGLOBIN 12.6 g/dl (13.5-17.5); LYMPH # 1.1 10^3/uL (1.5-5.0); LYMPH % 12.6 % (24.0-44.0); MEAN CORPUSCULAR HEMOGLOBIN 28.5 pg (27.0-33.0); MEAN CORPUSCULAR HGB CONC 32.3 g/dl (32.0-36.5); MEAN CORPUSCULAR VOLUME 88.2 fl (80.0-96.0); MONO # 0.8 10^3/uL (0.0-0.8); MONO % 9.3 % (2.0-8.0); NEUTROPHILS # 6.7 10^3/uL (1.5-8.5); NEUTROPHILS % 74.1 % (36.0-66.0); PLATELET COUNT, AUTOMATED 253 10^3/uL (150-450); RED BLOOD COUNT 4.42 10^6/uL (4.30-6.10); WHITE BLOOD COUNT 9.1 10^3/uL (4.0-10.0)
[2020-09-12 20:28] LABS: ALBUMIN 3.6 GM/DL (3.2-5.2); BILIRUBIN,DIRECT 0.1 MG/DL (0.0-0.2); BILIRUBIN,TOTAL 0.4 MG/DL (0.2-1.0); TOTAL PROTEIN 7.5 GM/DL (6.4-8.2)
[2020-09-13] MEDS ORDERED: MIRA3350 PO (00:58)
[2020-09-13 02:16] VITALS: BP 157/80
== END 2020-09-13 02:10 | disposition home or self-care (01) ==
LOC: M ED 17:39
DX: K59.00 Constipation, unspecified (principal); I50.9 Heart failure, unspecified; I25.2 Old myocardial infarction; E11.9 Type 2 diabetes mellitus without complications; N40.0 Benign prostatic hyperplasia without lower urinary tract symptoms; Z95.5 Presence of coronary angioplasty implant and graft; Z79.82 Long term (current) use of aspirin; Z79.84 Long term (current) use of oral hypoglycemic drugs; Z79.899 Other long term (current) drug therapy
CPT/HCPCS: 74019; 80047; 80076; 83690; 85025; 99284; G0463

== ENCOUNTER → 2020-12-09 | Outpatient (REF) | payer MEDICARE, MEDICAID | LOC: M LABSMT 10:32 → M SFHCADAM 10:39 | PROVIDERS: ATTEND Urology | DX: R33.9 Retention of urine, unspecified (principal) ==